=== PATIENT | female | born 1945 | race Caucasian/White ===

== ENCOUNTER 2019-09-05 14:24 | Outpatient (CLI) | payer MEDICARE, SELFPAY ==
[2019-09-05 14:41] LABS: Blood Urea Nitrogen 25 mg/dL (8-26); Carbon Dioxide 30 mmol/L (22-30); Chloride 100 mmol/L (98-109); Estimated Glomerular Filt Rate 55; Glucose 128 mg/dL (70-105); Potassium 3.8 mmol/L (3.5-4.9); Sodium 137 mmol/L (138-146)
[2019-09-05 16:58] LABS: Immunoglobulin A 62 mg/dL (70-400); Immunoglobulin G 816 mg/dL (700-1600); Immunoglobulin M 80 mg/dL (40-230)
== END 2019-09-05 14:25 | disposition home or self-care (01) ==
PROVIDERS: Visit Provider Internal Medicine Hematology & Oncology
DX: D80.1 Nonfamilial hypogammaglobulinemia (principal)
CPT/HCPCS: 36415; 80048; 82784

== ENCOUNTER 2019-09-24 11:37 | Emergency (ER) | payer MEDICARE, SELFPAY ==
[2019-09-24] VITALS (22 sets, daily range): BP systolic 124–152; BP diastolic 52–63; PULSE 76–96; RESP 11–28; TEMP 36.9; O2SAT 90–97
--- NOTE | ~2019-09-24 | CT_ITS ---
EXAMINATION: CT brain wo con DATE: 09/24/2019 12:48 INDICATION: Dizziness. TECHNIQUE: Computed tomography (CT) of the head was performed without intravenous contrast. The mA wa s adjusted according to patient size. Iterative reconstruction technique was employed. The dose-lengt h product was 529.67 mGy-cm. COMPARISON: None FINDINGS: There is no intracranial hemorrhage, acute infarction, or abnormal intracranial mass lesion . The ventricles are normal in size. The paranasal sinuses are clear. The mastoid air cells are rich l. IMPRESSION: 1. Normal brain. Reviewed, dictated and finalized at location A. EL REGISTERED NURSE NICU IMPRESSION: 1. Normal brain.
--- NOTE | ~2019-09-24 | XR_ITS ---
EXAMINATION: XR chest 2V EXAM DATE: 09/24/2019 14:00 INDICATION: Shortness of air, cough. Sore throat. TECHNIQUE: Frontal and lateral projections of the chest obtained and reviewed. Comparison is made to prior examination from 02/06/2018. FINDINGS: The lungs are clear. There are no pleural effusions. The cardiomediastinal silhouette is within normal limits. There is no pneumothorax suspected. The bones and soft tissues are unremarkab le. There is moderate sliding gastroesophageal hiatal hernia. IMPRESSION: No acute cardiopulmonary findings. Moderate-sized gastroesophageal hiatal hernia. Reviewed, dictated and finalized at location B. CART ASSEMBLER
--- NOTE | 2019-09-24 11:46 | ECG_ITS ---
Measurements Intervals [place] Rate: 93 P: 31 NE: 154 QRS: 5 QRSD: 91 T: 67 QT: 377 QTc: 471 Interpretive Statements SINUS RHYTHM BASELINE ARTIFACT- I, II, V2 NORMAL ECG Electronically Signed On 09-24-2019 12:07:45 [place] by Cristian Ayala D.O.
[2019-09-24 11:55] LABS: Basophils Percent Auto 0.3 % (0.2-1.2); Hematocrit 38.1 % (37.0-47.0); Hemoglobin 12.4 g/dL (12.0-15.0); Immature Granulocyte Absolute 0.17 K/mm3 (0.00-0.031); Immature Granulocyte Percent A 1.7 % (0-0.5); Lymphocytes Absolute Auto 0.88 K/mm3 (0.9-3.2); Lymphocytes Percent Auto 8.6 % (18.3-44.2); Mean Corpuscular HGB Conc 32.5 g/dl (32-36); Mean Corpuscular Hemoglobin 32.4 pg (26-34); Mean Corpuscular Volume 99.5 fl (80-100); Mean Platelet Volume 9.3 fl (7.4-10.4); Monocytes Absolute Auto 0.1 K/mm3 (0.1-0.6); Monocytes Percent Auto 1.2 % (2.6-8.5); Neutrophils Absolute Auto 9.1 K/mm3 (1.3-6.7); Neutrophils Percent Auto 88.2 % (45.5-73.1); Platelet Count Result 365 k/mm3 (150-375); Red Blood Count 3.83 M/mm3 (4.2-5.4); Red Cell Distribution Width 14.2 % (11.5-14.5); White Blood Count 10.3 K/mm3 (4.5-10.0)
[2019-09-24 12:06] LABS: Blood Urea Nitrogen 23 mg/dL (7-17); Calcium 9.6 mg/dL (8.4-10.2); Carbon Dioxide 23 mmol/L (22-30); Chloride 97 mmol/L (98-107); Estimated Glomerular Filt Rate 55; Glucose 181 mg/dL (65-105); Potassium 5.3 mmol/L (3.4-5.0); Sodium 136 mmol/L (137-145)
--- NOTE | 2019-09-24 12:25 | ED.DIZZY ---
HPI - Dizziness General Chief Complaint: Dizziness Stated Complaint: dizziness at the infusion center Time Seen by Provider: 09/24/19 11:46 Source: patient, family and RN notes reviewed Mode of arrival: ambulatory Limitations: no limitations History of Present Illness HPI Narrative: A 73 y/o female presents to the ED with dizziness beginning this morning after she woke up. She states that she feels like she is off balance and floating . She reports increased lethargy. She denies head movement or anything else aggravating her dizziness. She also denies any numbness, tinging, fevers, sweats, dysuria, urinary frequency, hematuria, CP, SOB, rhinorrhea, sore throat, or cough. MD elicited complaint: dizziness Pertinent past history: anemia Onset (ago): hour(s) (this morning when she woke up) Timing: awoke with symptoms Description: off-balance and other ( floating ) Exacerbating factors: nothing Associated symptoms: other (lethargy) Related Data Allergies Allergy/AdvReac Type Severity Reaction Status Date / Time hydromorphone Allergy Intermediate UNKNOWN Verified 09/26/18 12:59 fentanyl Allergy Mild ITCHING Verified 09/26/18 12:59 morphine Allergy Unknown Verified 05/26/15 16:55 MORPHINE SULFATE Allergy Intermediate ITCHING Uncoded 09/26/18 12:59 RASH Review of Systems Review of Systems: All systems reviewed & are unremarkable except as noted in HPI and below Constitutional: Constitutional: Denies fever(s) and Reports other (lethargy. Denies: sweats.) ENT: Denies nasal discharge and Denies sore throat Cardiovascular: Cardiovascular: Denies chest pain Respiratory: Respiratory: Denies cough and Denies dyspnea Genitourinary: Genitourinary: Denies hematuria, Denies nocturia and Denies dysuria Neurologic: Reports dizziness, Denies numbness and Denies tingling PMFSH Past Medical History Medical History Anemia Back pain with history of spinal surgery Cataracts, bilateral Depression GERD (gastroesophageal reflux disease) History of GI bleed History of rectal polyps History of revision 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teral knee replacement History of bladder surgery History of hysterectomy History of mastectomy History of tonsillectomy History of total hip replacement JOSÉ MIGUEL. Hx of bilateral cataract extraction Hx of cardiac cath Hx of tubal ligation Family History Family History Father Patient's father is Family history of thyroid disease Family history of cataracts Family history of heart disease in male family member before age 55 Family history of hearing loss Sibling Family history of thyroid disease Family history of obesity Family history of mental disorder Depression Family history of arthritis Family history of diabetes mellitus in first degree relative Family history of atrial fibrillation Mother Family history of cataracts Family history of anemia Cerebrovascular accident Family history of hearing loss Other Family history of malignant neoplasm Social History Social History Smoking status: Former smoker Second hand tobacco smoke exposure: Yes Smoking end date: 07/31/88 Alcohol intake: current Gender identity (if verbalized by the patient): Female Exam Narrative: Exam Narrative: GENERAL: Well-appearing, well-nourished, and in no acute distress. HEAD: Normocephalic, atraumatic. ENT: Mucous membranes moist. TMs normal bilaterally. CHEST: Clear to auscultation. No respiratory distress. HEART: Regular rate and rhythm. No
--- NOTE | 2019-09-24 12:50 | PC.NURSE ---
Pt has orthostatic dizziness this morning on awakening along with lethargy. Pt is A&Ox4. Pt denies SOB, blood in the stool or pain. Pt appears in NAD. Pt has call light in reach and family at bedside.
[2019-09-24] MEDS: SODIUM CHLORIDE 0.9% IV 1,000 ML 999 ML IV CONT (13:04)
[2019-09-24 13:14] LABS: Add Urine Microscopic? YES; Appearance Urine Clear (Clear); Bacteria Urine Trace /hpf; Bilirubin Urine Negative (Negative); Blood Urine Negative (Negative); Color Urine Yellow (Yellow); Glucose Urine UA Negative (Negative); Ketones Urine Negative (Negative); Leukocyte Esterase Ur Negative LEU/UL (Negative); Mucus Urine Rare /lpf; Nitrate Urine Negative (Negative); Protein Urine Negative (Negative); RBC Urine 0-2 /hpf (0-2); Specific Grav Ur 1.012 (1.001-1.035); Squamous Epithelial Cell Urine Few /hpf (Few); Urobilinogen Urine Negative mg/dL (<2.0); WBC Urine 0-3 /hpf
--- NOTE | 2019-09-24 14:45 | PC.NURSE ---
Pt walked without difficulty. Pt states she feels better after fluids
== END 2019-09-24 17:01 | disposition home or self-care (01) ==
PROVIDERS: Emergency Provider Emergency Medicine; PCP Internal Medicine
DX: E86.0 Dehydration (principal); Z87.891 Personal history of nicotine dependence
CPT/HCPCS: 36415; 70450; 71046; 80048; 81001; 85025; 93005; 96360; 96361; 99212; 99284; G0463; J7030

== ENCOUNTER 2019-10-07 12:40 | Outpatient (CLI) | payer MEDICARE, SELFPAY ==
--- NOTE | ~2019-10-07 | XR_ITS ---
XR chest 2V 10/07/2019 13:04 Indication: Cough Procedure: 2 view chest Comparison: Comparison to multiple prior studies sequentially, with oldest reviewed study dated 10/26. Findings: Heart size normal. Moderate size hiatal hernia. No focal air space disease, pulmonary edema , pleural effusion or suspected pneumothorax. There is levoscoliosis. No acute osseous abnormality. Impression: 1: No acute cardiopulmonary disease. 2: Moderate size hiatal hernia. Reviewed, dictated and finalized at location A. Impression: 1: No acute cardiopulmonary disease. 2: Moderate size hiatal hernia.
== END 2019-10-07 12:41 | disposition home or self-care (01) ==
LOC: ANHIMG 12:47
PROVIDERS: PCP Internal Medicine; Visit Provider Physician Assistant
DX: R05 Cough (principal); K44.9 Diaphragmatic hernia without obstruction or gangrene
CPT/HCPCS: 71046

== ENCOUNTER → 2019-11-01 15:32 | Outpatient (CLI) | payer MEDICARE, OTHER, SELFPAY ==
--- NOTE | ~2019-11-01 | MM_ITS ---
EXAMINATION: MM screening yordan BI w jason HISTORY: Screening mammogram TECHNIQUE: Craniocaudal and mediolateral oblique 3-D tomosynthesis images were obtained and synthetic 2-D images were generated. CAD analysis was submitted and interpreted. COMPARISON: 07/17/2018 bilateral digital screening mammogram 2. bilateral diagnostic digital mammogram and bilateral Limited breast ultrasound 05/03/2017, 04/15/2016 bilateral digital screening mammogram examinations BREAST PARENCHYMAL COMPOSITION: There are scattered areas of fibroglandular density. FINDINGS: Stable mild fibroglandular asymmetry. Scattered benign calcifications. A biopsy marker is n oted on the left; history of prior benign left breast biopsy. There is no evidence of suspicious mass , calcification, or architectural distortion to suggest malignancy in either breast. There has been n o suspicious interval change. IMPRESSION: 1. No mammographic evidence of malignancy. 2. Recommend routine screening mammography in one year. BI-RADS Category 2: Benign finding(s). Reviewed, dictated and finalized at location A.
== END ==
PROVIDERS: PCP Internal Medicine; Visit Provider Obstetrics & Gynecology
DX: Z12.31 Encounter for screening mammogram for malignant neoplasm of breast (principal)
CPT/HCPCS: 77063; 77067

== ENCOUNTER → 2019-11-05 13:46 | Outpatient (CLI) | payer MEDICARE, OTHER, SELFPAY ==
--- NOTE | ~2019-11-05 | MR_ITS ---
EXAMINATION: MR lumbar spine wo con EXAM DATE: 11/05/2019 14:27 INDICATION: Low back pain, right hip pain, spasms. TECHNIQUE: Multi-sequential, multiplanar MR images of the lumbar spine were obtained without contrast . Sagittal T1, T2, T2 fat saturation images. Axial T2 weighted images. Comparison is made to prior examination from 08/08/2016. FINDINGS: L5 is a transitional segment which is partially fused to the S1 segment. There is mild bone marrow edema within the central aspects of the T12 and L1 vertebral bodies, mild diffuse loss of the se vertebral body heights which is new compared to prior exam, could be subacute mild compression fra ctures. There is 3 mm retrolisthesis T12 on L1 and L2 on L3, 6 mm is anterolisthesis L4 on L5. The co nus medullaris terminates at the L1-2 level and has normal signal intensity and morphology. Paraspin al soft tissue is unremarkable. Level by level evaluation: T12-L1: There is a moderate diffuse disc bulge. Facet arthropathy: Mild to moderate. Neural foraminal stenosis: Moderate right. Central canal stenosis: Mild to moderate. L1-L2: There is a mild diffuse disc bulge. Facet arthropathy: Mild. Neural foraminal stenosis: No stenosis. Central canal stenosis: No stenosis. L2-L3: There is a mild to moderate diffuse disc bulge. Facet arthropathy: Mild to moderate . Ligamentum flavum enlargement. Neural foraminal stenosis: Mild to moderate bilateral. Central canal stenosis: Mild to moderate, left lateral recess narrowing. L3-L4: There is a mild to moderate diffuse disc bulge. Facet arthropathy: Moderate . Ligamentum flavum enlargement. Neural foraminal stenosis: Moderate bilateral. Central canal stenosis: Moderate. L4-L5: There is a moderate diffuse disc bulge. Facet arthropathy: Severe . Ligamentum flavum enlargement. Neural foraminal stenosis: Moderate bilateral. Central canal stenosis: Moderate to severe. L5-S1: There is a congenitally an partially fused narrowed disc space. Facet arthropathy: Mild. Neural foraminal stenosis: Mild bilateral. Central canal stenosis: No stenosis. There has been noticeable interval progression in spondylosis compared to previous examination. IMPRESSION: 1. Probable subacute mild compression fractures T12 and L1. 2. Interval progression in lumbar spondylosis with L4-5 grade 1 anterolisthesis, moderate to severe central canal stenosis. 3. Lesser spondylosis at other levels. Reviewed, dictated and finalized at location B. IMPRESSION: 1. Probable subacute mild compression fractures T12 and L1. 2. Interval progression in lumbar spondylosis with L4-5 grade 1 anterolisthesi s, moderate to severe central canal stenosis. 3. Lesser spondylosis at other levels.
== END ==
PROVIDERS: PCP Internal Medicine; Visit Provider Nurse Practitioner Family
DX: M54.16 Radiculopathy, lumbar region (principal)
CPT/HCPCS: 72148

== ENCOUNTER → 2019-11-08 14:27 | Outpatient (CLI) | payer MEDICARE, OTHER, SELFPAY ==
--- NOTE | ~2019-11-08 | DEXA_ITS ---
Bone Density Report Name: Marce Tidwell Age: 74 Sex: Female Ethnicity: White Date of : 1945 Indication: monitoring treatment; height loss; prior fracture; hysterectomy; rheumatoid arthritis; postmenopausal Referring Provider: Henrry, Carol Study: Bone densitometry was performed. Exam Date: November 08, 2019 Accession number: [id number] Bone Density: Region BMD T-score Z-score Classification AP Spine (L2, L3) 1.286 2.1 4.4 Normal World Health Organization criteria for BMD impression classify patients as: Normal (T-score at or above -1.0), Osteopenia (T-score between -1.0 and -2.5), or Osteoporosis (T-score at or below -2.5). Previous Exams: Region Exam Age BMD T-score BMD Change BMD Change Date g/cm2 vs Baseline vs Previous AP Spine(L2, L3) 11/08/2019 74 1.286 2.1 0.319* 0.159* 04/07/2017 71 1.127 0.6 0.160* 0.033* 05/14/2014 68 1.094 0.3 0.128* 0.065* 12/28/2011 66 1.029 -0.3 0.063* -0.049* 07/27/2009 63 1.078 0.2 0.112* 0.093* 04/18/2008 62 0.985 -0.7 0.019 0.019 07/07/2005 59 0.966 -0.8 *Denotes significance at 95% confidence level, LSC for AP Spine = 0.022 g/cm2 Clinical Information Provided by Patient: Have had a previous hip or vertebral fracture Has had a low trauma fracture Has rheumatoid arthritis Is being treated for osteoporosis Has used the following medications: HRT (i.e. estrogen/hormone therapy), Vitamin D, Calcium Has the following medical conditions: Hysterectomy Patient maximum height was 62 Menopause Age: 29 No regular weight bearing exercise Does not regularly consume dairy products Drinks caffeinated beverages Onset of menses at age 11 Number of children 2 Impression: The patient has normal bone mass. The patient has risk factors, including: previous fracture. No significant bone loss was observed. Discussion: PATIENT UNDER TREATMENT WITH NO SIGNIFICANT BMD LOSS SINCE LAST EXAM. In an untreated patient, BMD typically declines with age. A lack of decline or gain is usually a sign that treatment is efficacious and fracture risk is reduced. It is important to ask patients whether they are taking their medications and to encourage continued and appropriate compliance with their osteoporosis therapies to reduce fracture risk. It is also important to review their risk factors and encourage appropriate calcium and vitamin D intakes, exercise, fall prevention and other lifestyle measures. Follow-Up: Consider a repeat BMD and Vertebral Fracture Assessment (VFA) exam in 2 years or sooner if medically necessary, to reassess this patient's status. Reported by: MAYTE on
== END ==
PROVIDERS: PCP Internal Medicine; Visit Provider Nurse Practitioner Family
DX: M80.08XA Age-related osteoporosis with current pathological fracture, vertebra(e), initial encounter for fracture (principal)
CPT/HCPCS: 77080

== ENCOUNTER 2019-12-06 17:23 | Outpatient (CLI) | payer MEDICARE, SELFPAY ==
--- NOTE | ~2019-12-06 | XR_ITS ---
XR lumbar spine min 4V 12/06/2019 17:59 Indication: Back pain. Recent fall. Procedure: 4 views of the lumbar spine Comparison: 08/07/2007 Findings: There are vertebroplasty changes at T12 and L1. There is severe multilevel facet hypertroph y with degenerative anterolisthesis at L4-5. No acute fracture or traumatic malalignment. Mild levosc oliosis centered at the thoracolumbar spine. There are bilateral hip arthroplasties. Impression: 1: Severe lumbar spondylosis. 2: Mild loss of vertebral body height at T12 with vertebroplasty changes at T12 and L1. Reviewed, dictated and finalized at location A. Impression: 1: Severe lumbar spondylosis. 2: Mild loss of vertebral body height at T12 with vertebroplasty changes at T12 and L1.
== END 2019-12-06 17:24 | disposition home or self-care (01) ==
LOC: ANHIMG 17:36
PROVIDERS: PCP Internal Medicine; Visit Provider Nurse Practitioner Family
DX: M47.26 Other spondylosis with radiculopathy, lumbar region (principal); R29.890 Loss of height
CPT/HCPCS: 72110

== ENCOUNTER 2020-09-30 13:48 | Outpatient (CLI) | payer MEDICARE, SELFPAY | END 2020-09-30 13:49 | disposition home or self-care (01) | LOC: ANHCOVIDVC 13:48 | PROVIDERS: PCP Internal Medicine | DX: Z23 Encounter for immunization (principal) | CPT/HCPCS: 0001A; 91300 ==

== ENCOUNTER → 2020-10-15 18:56 | Outpatient (CLI) | payer MEDICARE, OTHER, SELFPAY ==
--- NOTE | ~2020-10-15 | XR_ITS ---
XR hand RT min 3V DATE: 10/15/2020 19:11 INDICATION: Right hand pain TECHNIQUE: 3 views COMPARISON: None FINDINGS: There is severe osteoarthritis at the triscaphe and particularly first carpometacarpal join ts. There is osteoarthritis at the first and second metacarpophalangeal joints and multiple interphalange al joints, particularly the interphalangeal joint of the first digit and distal interphalangeal joint s of the second and fifth digits. There is chondrocalcinosis at the triangular cartilage and wrist joint. No erosive change is evident. No fracture, dislocation, periosteal reaction or bone destruction is detected. 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
== END ==
PROVIDERS: Visit Provider Internal Medicine
DX: M19.041 Primary osteoarthritis, right hand (principal); M11.241 Other chondrocalcinosis, right hand
CPT/HCPCS: 73130

== ENCOUNTER 2020-10-21 13:40 | Outpatient (CLI) | payer MEDICARE, SELFPAY | END 2020-10-21 13:41 | disposition home or self-care (01) | LOC: ANHCOVIDVC 13:40 | DX: Z23 Encounter for immunization (principal) | CPT/HCPCS: 0002A; 91300 ==

== ENCOUNTER 2020-12-09 13:59 | Emergency (ER) | payer MEDICARE, SELFPAY ==
[2020-12-09 14:11] VITALS: BP 127/43; PULSE 98; RESP 12; TEMP 37.3; O2SAT 99
--- NOTE | 2020-12-09 14:20 | ED.GENADULT ---
HPI - General Adult General Chief complaint: Upper Respiratory Infection Stated complaint: sore throat Time Seen by Provider: 12/09/20 14:20 Source: patient and RN notes reviewed Mode of arrival: ambulatory Limitations: no limitations History of Present Illness HPI narrative: 75-year-old female presents with complaints of sore throat, upper respiratory infection, facial congestion, facial pressure, tongue soreness and irritation for the past 3 weeks. Marce reports increase congestion and pressure for the past 7 days. Gargle with salt water and Aspirin with little relief. No high fevers, drooling, neck or throat swelling. Pain is bilateral. Hurts to swallow. Exacerbation factors consist of eating and drinking. No rhinorrhea. Nasal congestion. No voice change. No nausea, vomiting, or abdominal pain. Tolerating liquids well. Denies dyspnea, difficulty swallowing, jaw pain, dental pain, facial pain, foreign body sensation, and rash. Remains active. The patient reports she have not been diagnosed with COVID-19. The patient reports she received 2 Pfizer COVID-19 vaccines. The patient reports she is not waiting for the results of a COVID-19 lab test. The patient reports she do not have chills, weakness, or fatigue. The patient reports she do not have a new or worsening cough. Denies chest pain. The patient reports she do not have any loss of taste or smell or diarrhea. Denies recent traveling. Denies concerns for COVID-19 or exposures been home with limited outdoor exposure except for essential household needs and return home. At this time, patient is not suspected of having COVID-19. Some parts of this dictation were generated by voice recognition software and may contain typographical and/or grammatical inaccuracies. Related Data Home Medications Medication Instructions Recorded Confirmed antiarthritic combination no.2 900 900 mg PO BID 10/07/19 11/03/20 mg tablet biotin 1 mg capsule 1 mg PO DAILY 10/07/19 07/28/20 calcium carbonate 600 mg calcium 600 mg PO DAILY 10/07/19 11/03/20 (1,500 mg) tablet clonazepam 1 mg tablet 1 mg PO .hs tablet 10/07/19 11/03/20 cyanocobalamin (vitamin B-12) 1,000 mcg IM WEEKLY 10/07/19 11/03/20 1,000 mcg/mL injection kit cyclobenzaprine 10 mg tablet 10 mg PO TID tablet 10/07/19 11/03/20 cyclosporine 0.05 % eye drops in a 1 drop EACH EYE Q12H 10/07/19 11/03/20 dropperette estradiol cypionate 5 mg/mL 2.5 mg IM [id number] ml 10/07/19 11/03/20 intramuscular oil finasteride 5 mg tablet 5 mg PO DAILY 10/07/19 11/03/20 gabapentin 600 mg tablet 600 mg PO BID 10/07/19 11/03/20 hydrocodone 5 mg-acetaminophen 325 1 tablet PO Q8H PRN 10/07/19 11/03/20 mg tablet hydroxyzine HCl 25 mg tablet 25 mg PO BID PRN 10/07/19 11/03/20 lactobacillus combination no.8 3 3,000 mmu cells PO DAILY 10/07/19 11/03/20 billion cell capsule levothyroxine 175 mcg tablet 175 mcg PO DAILY 10/07/19 11/03/20 liothyronine 5 mcg tablet 5 mcg PO DAILY 10/07/19 11/03/20 magnesium 30 mg tablet 30 mg PO DAILY 10/07/19 11/03/20 multivitamin 1 tablet PO DAILY 10/07/19 11/03/20 nabumetone 750 mg tablet 750 mg PO BID 10/07/19 11/03/20 sertraline 50 mg tablet 50 mg PO DAILY 10/07/19 11/03/20 spironolactone 100 mg tablet 200 mg PO DAILY tablet 10/07/19 11/03/20 temazepam 30 mg capsule 30 mg PO ONCE 10/07/19 11/03/20 testosterone cypionate 200 mg/mL 50 mg IM .q2w each 10/07/19 11/03/20 intramuscular kit tofacitinib 11 mg tablet,extended 11 mg PO DAILY 10/07/19 11/03/20 release 24 hr amitriptyline 25 mg tablet 25 mg PO ONCE 03/03/20 11/03/20 folic acid 1 mg tablet 2 mg PO DAILY tablet 03/03/20 11/03/20 loteprednol etabonate [Lotemax SM] 1 drp OPHTHALMIC (EYE) HS 07/28/20 11/03/20 Allergies Allergy/AdvReac Type Severity Reaction Status Date / Time fentanyl AdvReac Unknown ITCHING Verified 11/03/20 14:24 hydromorphone AdvReac Unknown Itching Verified 11/03/20 14:24 morphine AdvReac Unknown Itching Verified
== END 2020-12-09 14:42 | disposition home or self-care (01) ==
PROVIDERS: Emergency Provider Nurse Practitioner Family; PCP Internal Medicine
DX: J01.10 Acute frontal sinusitis, unspecified (principal); Z87.891 Personal history of nicotine dependence; F32.9 Major depressive disorder, single episode, unspecified; K21.9 Gastro-esophageal reflux disease without esophagitis; E78.00 Pure hypercholesterolemia, unspecified; E03.9 Hypothyroidism, unspecified; M19.90 Unspecified osteoarthritis, unspecified site; M06.9 Rheumatoid arthritis, unspecified; Z96.653 Presence of artificial knee joint, bilateral; Z96.643 Presence of artificial hip joint, bilateral; Z98.42 Cataract extraction status, left eye; Z98.41 Cataract extraction status, right eye; Z90.10 Acquired absence of unspecified breast and nipple
CPT/HCPCS: 99213; G0463

== ENCOUNTER → 2021-03-19 13:56 | Outpatient (CLI) | payer MEDICARE, OTHER, SELFPAY ==
--- NOTE | ~2021-03-19 | MM_ITS ---
EXAMINATION: MM screening yordan BI w jason HISTORY: Screening mammogram TECHNIQUE: Craniocaudal and mediolateral oblique 3-D tomosynthesis images were obtained and synthetic 2-D images were generated. CAD analysis was submitted and interpreted. COMPARISON: 11/01/2019, 07/17/2018 bilateral digital screening mammogram examinations BREAST PARENCHYMAL COMPOSITION: There are scattered areas of fibroglandular density. FINDINGS: There is a biopsy marker in the left breast; history of prior benign left breast biopsy in 2012. Occasional bilateral benign calcifications. There is no evidence of suspicious mass, calcification, o r architectural distortion to suggest malignancy in either breast. There has been no suspicious inter sun change. IMPRESSION: 1. No mammographic evidence of malignancy. 2. Recommend routine screening mammography in one year. BI-RADS Category 2: Benign finding(s). Reviewed, dictated and finalized at location A.
== END ==
PROVIDERS: PCP Internal Medicine; Visit Provider Obstetrics & Gynecology
DX: Z12.31 Encounter for screening mammogram for malignant neoplasm of breast (principal)
CPT/HCPCS: 77063; 77067

== ENCOUNTER 2021-09-23 15:12 | Emergency (ER) | payer OTHER, MEDICARE, SELFPAY ==
[2021-09-23] VITALS (31 sets, daily range): BP systolic 87–131; BP diastolic 42–106; PULSE 65–87; RESP 11–23; TEMP 36.6; O2SAT 85–100
--- NOTE | ~2021-09-23 | XR_ITS ---
EXAMINATION: XR hip RT 1V INDICATION: Post reduction TECHNIQUE: AP view of the right hip is obtained. COMPARISON: 1527 hours FINDINGS: There has been interval reduction of the previously described right hip arthroplasty disloc ation. Alignment appears normal. No fracture is identified. IMPRESSION: 1. Reduced hip arthroplasty dislocation. Reviewed, dictated and finalized at location F. THERAPIST
--- NOTE | ~2021-09-23 | XR_ITS ---
EXAMINATION: XR hip RT 2V w AP pelvis DATE: 09/23/2021 15:42 INDICATION: Right hip dislocation post fall TECHNIQUE: Anteroposterior view of the pelvis and anteroposterior and cross-table lateral views of th e right hip were obtained. COMPARISON: CT dated 07/17/2018 FINDINGS: Bilateral noncemented total hip arthroplasties. Posterior superior dislocation of the right total hip arthroplasty. There is osteolysis surrounding the proximal aspect of the femoral component of the ri ght hip arthroplasty. No lucency surrounding the bilateral acetabular components or the left femoral component. No fracture. Severe lower lumbar facet osteoarthritis. IMPRESSION: 1. Posterosuperior dislocation of a right total hip arthroplasty. Reviewed, dictated and finalized at location A. [employer]
--- NOTE | 2021-09-23 15:34 | ED.GENADULT ---
HPI - General Adult General Chief complaint: Unspecified <Guy Chavarria APRN - Last Filed: 09/23/21 17:23> Stated complaint: R hip dislocation <Guy Chavarria APRN - Last Filed: 09/23/21 17:23> Time Seen by Provider: 09/23/21 15:20 <Guy Chavarria APRN - Last Filed: 09/23/21 17:23> History of Present Illness HPI narrative: 75-year-old female presents the emergency room status post right hip pain. Patient states that she was using the restroom when she lifted her hip up off the toilet and noticed significant pain in her posterior side of her right hip. Patient was unable to ambulate following the event. Patient has a history of right hip repair, and a right hip revision. Right hip was initially repaired at [facility], right hip revision was performed to the hospital in the [facility]. Patient has a recent history of right hip dislocation, which was reduced at [facility] facility and stabilized. <Guy Chavarria APRN - Last Filed: 09/23/21 17:23> Related Data Home medications: Home Medications Medication Instructions Recorded Confirmed antiarthritic combination no.2 900 900 mg PO BID 10/07/19 11/03/20 mg tablet biotin 1 mg capsule 1 mg PO DAILY 10/07/19 07/28/20 calcium carbonate 600 mg calcium 600 mg PO DAILY 10/07/19 11/03/20 (1,500 mg) tablet clonazepam 1 mg tablet 1 mg PO .hs tablet 10/07/19 11/03/20 cyanocobalamin (vitamin B-12) 1,000 mcg IM WEEKLY 10/07/19 11/03/20 1,000 mcg/mL injection kit cyclobenzaprine 10 mg tablet 10 mg PO TID tablet 10/07/19 11/03/20 cyclosporine 0.05 % eye drops in a 1 drop EACH EYE Q12H 10/07/19 11/03/20 dropperette estradiol cypionate 5 mg/mL 2.5 mg IM [id number] ml 10/07/19 11/03/20 intramuscular oil finasteride 5 mg tablet 5 mg PO DAILY 10/07/19 11/03/20 gabapentin 600 mg tablet 600 mg PO BID 10/07/19 11/03/20 hydrocodone 5 mg-acetaminophen 325 1 tablet PO Q8H PRN 10/07/19 11/03/20 mg tablet hydroxyzine HCl 25 mg tablet 25 mg PO BID PRN 10/07/19 11/03/20 lactobacillus combination no.8 3 3,000 mmu cells PO DAILY 10/07/19 11/03/20 billion cell capsule levothyroxine 175 mcg tablet 175 mcg PO DAILY 10/07/19 11/03/20 liothyronine 5 mcg tablet 5 mcg PO DAILY 10/07/19 11/03/20 magnesium 30 mg tablet 30 mg PO DAILY 10/07/19 11/03/20 multivitamin 1 tablet PO DAILY 10/07/19 11/03/20 nabumetone 750 mg tablet 750 mg PO BID 10/07/19 11/03/20 sertraline 50 mg tablet 50 mg PO DAILY 10/07/19 11/03/20 spironolactone 100 mg tablet 200 mg PO DAILY tablet 10/07/19 11/03/20 temazepam 30 mg capsule 30 mg PO ONCE 10/07/19 11/03/20 testosterone cypionate 200 mg/mL 50 mg IM .q2w each 10/07/19 11/03/20 intramuscular kit tofacitinib 11 mg tablet,extended 11 mg PO DAILY 10/07/19 11/03/20 release 24 hr amitriptyline 25 mg tablet 25 mg PO ONCE 03/03/20 11/03/20 folic acid 1 mg tablet 2 mg PO DAILY tablet 03/03/20 11/03/20 loteprednol etabonate [Lotemax SM] 1 drp OPHTHALMIC (EYE) HS 07/28/20 11/03/20 <Guy Chavarria, CLINICAL NURSE EDUCATOR - Last Filed: 09/23/21 17:23> Allergies/adverse reactions: Allergies Allergy/AdvReac Type Severity Reaction Status Date / Time fentanyl AdvReac Unknown ITCHING Verified 11/03/20 14:24 hydromorphone AdvReac Unknown Itching Verified 11/03/20 14:24 morphine AdvReac Unknown Itching Verified 11/03/20 14:24 <Guy Chavarria, CLINICAL NURSE EDUCATOR - Last Filed: 09/23/21 17:23> Review of Systems Review of Systems: CONSTITUTIONAL: Denies fever, chills, or sweats. EYES: Denies visual changes, redness, or discharge. ENT: Denies rhinorrhea, congestion, sore throat, or otalgia. CARDIOVASCULAR: Denies chest pain, palpitations, or edema. RESPIRATORY: Denies cough or dyspnea. GASTROINTESTINAL: Denies abdominal pain, nausea, vomiting, or diarrhea. GENITOURINARY: Denies dysuria or hematuria. SKIN: Denies rash or itching. MUSCULOSKELETAL: Denies back pain, joint pain, or myalgia. Right hip pain NEUROLOGIC: Denies headache, numbness, dizziness, or weakness. PSYCHIA
--- NOTE | 2021-09-23 16:52 | PC.NURSE ---
1635. pt. alert and oriented x4 1 L NS hung to gravity. vorb 1640 30 mg propofol administered IVP by JOAN Barrientos
== END 2021-09-23 18:26 | disposition home or self-care (01) ==
PROVIDERS: Emergency Provider Nurse Practitioner Family; PCP Internal Medicine
DX: T84.020A Dislocation of internal right hip prosthesis, initial encounter (principal); K21.9 Gastro-esophageal reflux disease without esophagitis; E78.00 Pure hypercholesterolemia, unspecified; E03.9 Hypothyroidism, unspecified; K58.9 Irritable bowel syndrome, unspecified; M06.9 Rheumatoid arthritis, unspecified; M19.90 Unspecified osteoarthritis, unspecified site; Z87.440 Personal history of urinary (tract) infections; Z87.19 Personal history of other diseases of the digestive system; Z98.42 Cataract extraction status, left eye; Z98.41 Cataract extraction status, right eye; Z96.653 Presence of artificial knee joint, bilateral; Z96.643 Presence of artificial hip joint, bilateral; Z87.891 Personal history of nicotine dependence
CPT/HCPCS: 27265; 73501; 73502; 99285; J2704; J7030

== ENCOUNTER 2021-11-01 14:48 | Emergency (ER) | payer OTHER, SELFPAY ==
[2021-11-01] VITALS (51 sets, daily range): BP systolic 52–137; BP diastolic 16–80; PULSE 66–96; RESP 10–22; TEMP 36.1–37.2; O2SAT 90–100
--- NOTE | ~2021-11-01 | XR_ITS ---
EXAMINATION: XR hip RT min 2V EXAM DATE: 11/01/2021 16:41 INDICATION: Postreduction. TECHNIQUE: Frontal and crosstable lateral projections right hip compared to prior study from earlier same date. FINDINGS: The right hip has been reduced. Osteolysis surrounding proximal aspect of right femoral st em described on prior studies. IMPRESSION: Status post right hip reduction. Reviewed, dictated and finalized at location A.
--- NOTE | ~2021-11-01 | XR_ITS ---
EXAMINATION: XR hip RT 2V w AP pelvis EXAM DATE: 11/01/2021 15:16 INDICATION: Fall, right hip pain. TECHNIQUE: Right hip frontal, crosstable lateral projections for interpretation. Frontal projection p tony. Comparison is made to prior examination from 09/23/2021. FINDINGS: There are total bilateral hip arthroplasties again noted. There is recurrent complete super ior displacement of the right femoral component with respect to the acetabulum. There is lucency surrounding the proximal aspect of the right femoral component intertrochanteric reg ion, without any lucency surrounding the mid and distal aspect of the stem. Could be chronic small pa rticle disease, similar appearance on prior study. No lucency surrounding the acetabular component. IMPRESSION: 1. Recurrent right hip superior dislocation. 2. 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 Reviewed, dictated and finalized at location A. IMPRESSION: 1. Recurrent right hip superior dislocation. 2. Osteolysis proximal aspect right femoral stem, most likely small particle d isease.
--- NOTE | 2021-11-01 15:03 | ED.FALL ---
HPI - Fall General Chief Complaint: Fall Stated Complaint: R hip dislocation? Time Seen by Provider: 11/01/21 14:54 Source: patient and EMS Mode of arrival: EMS Limitations: no limitations History of Present Illness HPI Narrative: This is a 76 year old female with history of Rheumatoid arthritis who presents for evaluation of right hip pain. PAtient states she was sitting in a chair after taking a shower. She reports the chair cushion slid out of chair and this caused her to fall out of chair. She is having right hip pain and she reports his a pop in her right hip. She has history of right hip replacement with a revision . She denies hitting her head or LOC. She denies neck pain, numbness or tingling. EMS gave patient morphine 2 mg IV in route. She states she has taken dilaudid without an allergic reaction in the past. Related Data Home Medications Medication Instructions Recorded Confirmed antiarthritic combination no.2 900 900 mg PO BID 10/07/19 11/03/20 mg tablet biotin 1 mg capsule 1 mg PO DAILY 10/07/19 07/28/20 calcium carbonate 600 mg calcium 600 mg PO DAILY 10/07/19 11/03/20 (1,500 mg) tablet clonazepam 1 mg tablet 1 mg PO .hs tablet 10/07/19 11/03/20 cyanocobalamin (vitamin B-12) 1,000 mcg IM WEEKLY 10/07/19 11/03/20 1,000 mcg/mL injection kit cyclobenzaprine 10 mg tablet 10 mg PO TID tablet 10/07/19 11/03/20 cyclosporine 0.05 % eye drops in a 1 drop EACH EYE Q12H 10/07/19 11/03/20 dropperette estradiol cypionate 5 mg/mL 2.5 mg IM [id number] ml 10/07/19 11/03/20 intramuscular oil finasteride 5 mg tablet 5 mg PO DAILY 10/07/19 11/03/20 gabapentin 600 mg tablet 600 mg PO BID 10/07/19 11/03/20 hydrocodone 5 mg-acetaminophen 325 1 tablet PO Q8H PRN 10/07/19 11/03/20 mg tablet hydroxyzine HCl 25 mg tablet 25 mg PO BID PRN 10/07/19 11/03/20 levothyroxine 175 mcg tablet 175 mcg PO DAILY 10/07/19 11/03/20 liothyronine 5 mcg tablet 5 mcg PO DAILY 10/07/19 11/03/20 magnesium 30 mg tablet 30 mg PO DAILY 10/07/19 11/03/20 multivitamin 1 tablet PO DAILY 10/07/19 11/03/20 nabumetone 750 mg tablet 750 mg PO BID 10/07/19 11/03/20 sertraline 50 mg tablet 50 mg PO DAILY 10/07/19 11/03/20 spironolactone 100 mg tablet 200 mg PO DAILY tablet 10/07/19 11/03/20 temazepam 30 mg capsule 30 mg PO ONCE 10/07/19 11/03/20 testosterone cypionate 200 mg/mL 50 mg IM .q2w each 10/07/19 11/03/20 intramuscular kit tofacitinib 11 mg tablet,extended 11 mg PO DAILY 10/07/19 11/03/20 release 24 hr amitriptyline 25 mg tablet 25 mg PO ONCE 03/03/20 11/03/20 folic acid 1 mg tablet 2 mg PO DAILY tablet 03/03/20 11/03/20 loteprednol etabonate [Lotemax SM] 1 drp OPHTHALMIC (EYE) HS 07/28/20 11/03/20 Allergies Allergy/AdvReac Type Severity Reaction Status Date / Time fentanyl AdvReac Unknown ITCHING Verified 11/01/21 15:04 hydromorphone AdvReac Unknown Itching Verified 11/01/21 15:04 morphine AdvReac Unknown Itching Verified 11/01/21 15:04 Review of Systems Review of Systems: All systems reviewed & are unremarkable except as noted in HPI and below PMFSH Past Medical History Medical History (Updated 11/01/21 @ 18:09 by Sury Nolen MD) Anemia Back pain with history of spinal surgery Cataracts, bilateral Depression GERD (gastroesophageal reflux disease) History of GI bleed History of rectal polyps History of revision 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teral knee replacement History of bladder surgery History of hysterectomy History of mastectomy History of tonsillectomy History of total hip replacement JOSÉ MIGUEL. Hx of bilateral cataract extraction Hx of cardiac cath Hx of tubal ligation F
--- NOTE | 2021-11-01 15:07 | PC.NURSE ---
pt off floor to xray
[2021-11-01] MEDS: SODIUM CHLORIDE 0.9% IV 1,000 ML 999 ML IV CONT (15:34)
[2021-11-01] MEDS: ONDANSETRON INJ 4 MG/2 ML VIAL IV PUSH (15:35)
[2021-11-01] MEDS: HYDROmorphone HCL INJ (*CRX) 1 MG/ML SYR 0.5 MG IV PUSH (15:40)
--- NOTE | 2021-11-01 15:45 | PC.NURSE ---
MD aware of BP, okay to continue with Dilaudid at this time
--- NOTE | 2021-11-01 17:22 | PC.NURSE ---
ketamine was used for sedation/reduction 30 mg doses x2 first dose 1615 second dose 1620 the rest was wasted per policy
== END 2021-11-01 18:58 | disposition home or self-care (01) ==
PROVIDERS: Emergency Provider General Practice; PCP Internal Medicine
DX: T84.020A Dislocation of internal right hip prosthesis, initial encounter (principal); F32.A Depression, unspecified; E78.00 Pure hypercholesterolemia, unspecified; E03.9 Hypothyroidism, unspecified; M06.9 Rheumatoid arthritis, unspecified; Z86.2 Personal history of diseases of the blood and blood-forming organs and certain disorders involving the immune mechanism; Z87.19 Personal history of other diseases of the digestive system; Z96.643 Presence of artificial hip joint, bilateral; Z79.899 Other long term (current) drug therapy; W07.XXXA Fall from chair, initial encounter; Z87.891 Personal history of nicotine dependence; Z96.653 Presence of artificial knee joint, bilateral
CPT/HCPCS: 27265; 73502; 96374; 96375; 99285; J1170; J2405; J7030

== ENCOUNTER 2022-01-23 15:47 | Emergency (ER) | payer OTHER, SELFPAY ==
[2022-01-23] VITALS (9 sets, daily range): BP systolic 97–174; BP diastolic 36–116; PULSE 62–84; RESP 11–18; TEMP 36.6–36.7; O2SAT 15–100
--- NOTE | ~2022-01-23 | XR_ITS ---
EXAM: XR hip RT min 2V DATE: 01/23/2022 17:16 HISTORY: Post Reduction . COMPARISON: Same date at 4:03 PM. FINDINGS: The femoral head component is now aligned with the acetabular cup. There is mild superior displacement of the femoral head within the cup as can be seen with polyethylene wear. No other signi ficant interval change. IMPRESSION: Successful right hip reduction. Reviewed, dictated and finalized at location K.
--- NOTE | ~2022-01-23 | XR_ITS ---
EXAM: XR hip RT min 2V DATE: 01/23/2022 16:13 HISTORY: possible dislocation, patient states this is the 4th time . COMPARISON: 11/01/2021. FINDINGS: Decreased mineralization. No osseous or hardware fracture. The femoral component is disloc ated superiorly from the acetabular cup. Unchanged perihilar hardware lucency at the proximal aspect of the femoral component. No lytic or blastic lesion. Likely right hip joint effusion. IMPRESSION: Superior dislocation of the femoral component from the acetabular cup in the right hip. N o osseous or hardware fracture. Reviewed, dictated and finalized at location K. IMPRESSION: Superior dislocation of the femoral component from the acetabular c up in the right hip. No osseous or hardware fracture.
--- NOTE | 2022-01-23 16:26 | ED.GENADULT ---
HPI - General Adult General Chief complaint: Extremity Injury, Lower <Ember Vasquez PA-C - Last Filed: 01/23/22 20:29> Stated complaint: right hip pain <Ember Vasquez PA-C - Last Filed: 01/23/22 20:29> Time Seen by Provider: 01/23/22 16:01 <Ember Vasquez PA-C - Last Filed: 01/23/22 20:29> Source: patient and old records reviewed <MAIA Galvez Last Filed: 01/23/22 20:29> Mode of arrival: ambulatory <Ember Vasquez PA-C - Last Filed: 01/23/22 20:29> Limitations: no limitations <Ember Vasquez PA-C - Last Filed: 01/23/22 20:29> History of Present Illness HPI narrative: Patient is a 76-year-old female who presents the ED with report of right hip pain and possible dislocation. Patient has a history of 3 other previous right hip dislocations since June 2021. Had hip reduced at [facility] the first time, subsequent reductions at [facility] in August and October of this year. Patient had her hip replaced initially in 1990, revised in 2001 by a surgeon at [facility]. She saw her surgeon reportedly 6 weeks ago and was told her hips looked great. Patient reports tonight, she bent over to tie her R shoe when she suddenly felt her hip pop out of place. Significant pain in R hip since then. Brought to ED by . Denies any other injury or fall. Denies numbness, tingling. Patient has tolerated Dilaudid in the past. She reports she had an adverse reaction with hallucinations to the procedural sedation medication used in the last reduction. Per records, Ketamine used in October. Propofol used in August which patient tolerated. <Ember Vasquez PA-C - Last Filed: 01/23/22 20:29> Related Data Home medications: Home Medications Medication Instructions Recorded Confirmed biotin 1 mg capsule 1 mg PO DAILY 10/07/19 01/24/22 calcium carbonate 600 mg calcium 600 mg PO DAILY 10/07/19 01/24/22 (1,500 mg) tablet (Calcium) clonazepam 1 mg tablet (Klonopin) 1 mg PO .hs 03/09/20 06/27/22 cyanocobalamin (vitamin B-12) 1,000 mcg IM WEEKLY 10/07/19 01/24/22 1,000 mcg/mL injection kit cyclobenzaprine 10 mg tablet 10 mg PO TID 10/07/19 01/24/22 cyclosporine 0.05 % eye drops in a 1 drop ophthalmic (eye) Q12H 10/07/19 01/24/22 dropperette (Restasis) estradiol cypionate 5 mg/mL 2.5 mg IM [id number] 10/07/19 01/24/22 intramuscular oil (Depo-Estradiol) finasteride 5 mg tablet 5 mg PO DAILY 10/07/19 01/24/22 gabapentin 600 mg tablet 600 mg PO BID 10/07/19 01/24/22 levothyroxine 175 mcg tablet 175 mcg PO DAILY 10/07/19 01/24/22 liothyronine 5 mcg tablet 5 mcg PO DAILY 10/07/19 01/24/22 magnesium 30 mg tablet 30 mg PO DAILY 10/07/19 01/24/22 multivitamin (Multiple Vitamins 1 tablet PO DAILY 10/07/19 01/24/22 tablet) nabumetone 750 mg tablet 750 mg PO BID 10/07/19 01/24/22 sertraline 50 mg tablet 50 mg PO DAILY 10/07/19 01/24/22 spironolactone 100 mg tablet 200 mg PO DAILY 10/07/19 01/24/22 testosterone cypionate 200 mg/mL 50 mg IM .q2w 10/07/19 01/24/22 intramuscular kit (Testone CIK) amitriptyline 25 mg tablet 25 mg PO ONCE 03/03/20 01/24/22 folic acid 1 mg tablet 2 mg PO DAILY 03/03/20 01/24/22 loteprednol etabonate 0.38 % eye 1 drp ophthalmic (eye) HS 07/28/20 01/24/22 gel drops (Lotemax SM) cetirizine 10 mg tablet (Zyrtec) 10 mg PO DAILY PRN 11/12/21 01/24/22 hydrocodone 10 mg-acetaminophen 1 tablet PO Q6H PRN 11/12/21 01/24/22 325 mg tablet <Ember Vasquez PA-C - Last Filed: 01/23/22 20:29> Allergies/adverse reactions: Allergies Allergy/AdvReac Type Severity Reaction Status Date / Time fentanyl AdvReac Unknown ITCHING Verified 01/24/22 14:07 hydromorphone AdvReac Unknown Itching Verified 01/24/22 14:07 morphine AdvReac Unknown Itching Verified 01/24/22 14:07 <Ember Vasquez PA-C - Last Filed: 01/23/22 20:29> Review of Systems Review of Systems: CONSTITUTIONAL: Denies fever. MUSCULOSKELETAL: Reports R hip pain/dislocation
[2022-01-23] MEDS: HYDROmorphone HCL INJ (*CRX) 1 MG/ML SYR 0.5 MG IV PUSH (16:47)
[2022-01-23] MEDS: SODIUM CHLORIDE 0.9% IV 1,000 ML 1000 ML (16:50)
--- NOTE | 2022-01-23 16:50 | PC.NURSE ---
EDP at bedside for moderate sedation and reduction of right hip. Consent obtained prior to procedure. Dr. Hernandez gave propofol 50mg IV push.
--- NOTE | 2022-01-23 16:55 | PC.NURSE ---
Dr. Hernandez given 30mg propofol IV push with NS running at a TKO rate.
--- NOTE | 2022-01-23 16:58 | PC.NURSE ---
Additional propofol given IV push by Dr. Hernandez, 20mg
--- NOTE | 2022-01-23 17:52 | PC.NURSE ---
Propofol wasted amount 100mg at this time, second RN Foster Robison confirms.
== END 2022-01-23 18:23 | disposition home or self-care (01) ==
PROVIDERS: Emergency Provider Emergency Medicine; PCP Internal Medicine
DX: T84.020A Dislocation of internal right hip prosthesis, initial encounter (principal); E03.9 Hypothyroidism, unspecified; E78.00 Pure hypercholesterolemia, unspecified; M06.9 Rheumatoid arthritis, unspecified; M19.90 Unspecified osteoarthritis, unspecified site; K21.9 Gastro-esophageal reflux disease without esophagitis; F32.A Depression, unspecified; Z96.653 Presence of artificial knee joint, bilateral; Z90.10 Acquired absence of unspecified breast and nipple; Z96.643 Presence of artificial hip joint, bilateral; Z86.2 Personal history of diseases of the blood and blood-forming organs and certain disorders involving the immune mechanism; Z87.19 Personal history of other diseases of the digestive system; Z87.440 Personal history of urinary (tract) infections; Z87.891 Personal history of nicotine dependence; Z98.42 Cataract extraction status, left eye; Z98.41 Cataract extraction status, right eye; Y79.2 Prosthetic and other implants, materials and accessory orthopedic devices associated with adverse incidents
CPT/HCPCS: 27265; 73502; 96374; 99285; J1170; J7030

== ENCOUNTER 2022-02-07 13:33 | Emergency (ER) | payer OTHER, SELFPAY ==
[2022-02-07] VITALS (8 sets, daily range): BP systolic 112–135; BP diastolic 55–80; PULSE 72–80; RESP 12–21; TEMP 36.6–37; O2SAT 94–100
--- NOTE | ~2022-02-07 | XR_ITS ---
XR hip RT min 2V DATE: 02/07/2022 14:50 INDICATION: Postoperative reduction examination TECHNIQUE: Postoperative reduction AP and lateral views right hip COMPARISON: 02/07/2022 prereduction examination FINDINGS: There is interval reduction of the posterior superior dislocation at the right hip joint. No fracture is evident. IMPRESSION: Reduction of right hip dislocation Reviewed, dictated and finalized at location A.
--- NOTE | ~2022-02-07 | XR_ITS ---
XR hip RT 2V w AP pelvis DATE: 02/07/2022 13:50 INDICATION: Hip pain. History of 5 hip dislocations. TECHNIQUE: AP pelvis. AP and lateral views right hip. COMPARISON: 01/23/2022 right hip FINDINGS: There is complete posterior and superior dislocation of the right femoral head prosthesis f rom the acetabular prosthesis. No fracture is evident. Status post left total hip arthroplasty. Normal alignment at the pubic symphysis and sacroiliac joints. IMPRESSION: Posterior superior dislocation of right femoral head prosthesis Reviewed, dictated and finalized at location A.
--- NOTE | 2022-02-07 14:03 | ED.LOWEXIN ---
HPI - Extremity Injury (Lower) General Chief Complaint: Extremity Injury, Lower Stated Complaint: RIGHT HIP DISLOCATION Time Seen by Provider: 02/07/22 13:52 History of Present Illness HPI Narrative: 76-year-old female presents emergency room secondary to a presumed dislocation of her right hip prosthesis. She was sitting on the toilet today. She states the lid was actually down she not exactly sure what she was doing. About she felt her right hip pop out of place. This is the fifth time it has come out. She initially had the hip replacement done at [facility]. She denies any other problems or injuries. Related Data Home Medications Medication Instructions Recorded Confirmed biotin 1 mg capsule 1 mg PO DAILY 10/07/19 01/24/22 calcium carbonate 600 mg calcium 600 mg PO DAILY 10/07/19 01/24/22 (1,500 mg) tablet (Calcium) clonazepam 1 mg tablet (Klonopin) 1 mg PO .hs 10/07/19 01/24/22 cyanocobalamin (vitamin B-12) 1,000 mcg IM WEEKLY 10/07/19 01/24/22 1,000 mcg/mL injection kit cyclobenzaprine 10 mg tablet 10 mg PO TID 10/07/19 01/24/22 cyclosporine 0.05 % eye drops in a 1 drop ophthalmic (eye) Q12H 10/07/19 01/24/22 dropperette (Restasis) estradiol cypionate 5 mg/mL 2.5 mg IM [id number] 10/07/19 01/24/22 intramuscular oil (Depo-Estradiol) finasteride 5 mg tablet 5 mg PO DAILY 10/07/19 01/24/22 gabapentin 600 mg tablet 600 mg PO BID 10/07/19 01/24/22 levothyroxine 175 mcg tablet 175 mcg PO DAILY 10/07/19 01/24/22 liothyronine 5 mcg tablet 5 mcg PO DAILY 10/07/19 01/24/22 magnesium 30 mg tablet 30 mg PO DAILY 10/07/19 01/24/22 multivitamin (Multiple Vitamins 1 tablet PO DAILY 10/07/19 01/24/22 tablet) nabumetone 750 mg tablet 750 mg PO BID 10/07/19 01/24/22 sertraline 50 mg tablet 50 mg PO DAILY 10/07/19 01/24/22 spironolactone 100 mg tablet 200 mg PO DAILY 10/07/19 01/24/22 testosterone cypionate 200 mg/mL 50 mg IM .q2w 10/07/19 01/24/22 intramuscular kit (TestoBaz CIK) amitriptyline 25 mg tablet 25 mg PO ONCE 03/03/20 01/24/22 folic acid 1 mg tablet 2 mg PO DAILY 03/03/20 01/24/22 loteprednol etabonate 0.38 % eye 1 drp ophthalmic (eye) HS 07/28/20 01/24/22 gel drops (Lotemax SM) cetirizine 10 mg tablet (Zyrtec) 10 mg PO DAILY PRN 11/12/21 01/24/22 hydrocodone 10 mg-acetaminophen 1 tablet PO Q6H PRN 11/12/21 01/24/22 325 mg tablet Allergies Allergy/AdvReac Type Severity Reaction Status Date / Time fentanyl AdvReac Unknown ITCHING Verified 01/24/22 14:07 hydromorphone AdvReac Unknown Itching Verified 01/24/22 14:07 morphine AdvReac Unknown Itching Verified 01/24/22 14:07 Review of Systems Review of Systems: CONSTITUTIONAL: Denies fever, chills, or sweats. EYES: Denies visual changes, redness, or discharge. ENT: Denies rhinorrhea, congestion, sore throat, or otalgia. CARDIOVASCULAR: Denies chest pain, palpitations, or edema. RESPIRATORY: Denies cough or dyspnea. GASTROINTESTINAL: Denies abdominal pain, nausea, vomiting, or diarrhea. GENITOURINARY: Denies dysuria or hematuria. SKIN: Denies rash or itching. MUSCULOSKELETAL: Pain to the right hip. NEUROLOGIC: Denies headache, numbness, or weakness. PSYCHIATRIC: Denies anxiety or depression. [facility] Past Medical History Medical History Anemia Back pain with history of spinal surgery Cataracts, bilateral Depression GERD (gastroesophageal reflux disease) History of GI bleed History of rectal polyps History of revision 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teral knee replacement History of bladder surgery History of hysterectomy History of mastectomy History of tonsillectomy History of total hip re
--- NOTE | 2022-02-07 14:59 | PC.NURSE ---
1431 edP in room for right hip reduction, 7 mg etomidate ordered verbally. 7 mg of etomidate given to patient. patient sedated and xray in room. 1440 4 mg etomidate ordered and given to continue moderate sedation. patient resting comfortably.
== END 2022-02-07 16:44 | disposition home or self-care (01) ==
PROVIDERS: Emergency Provider Emergency Medicine; PCP Internal Medicine
DX: T84.020A Dislocation of internal right hip prosthesis, initial encounter (principal); E78.00 Pure hypercholesterolemia, unspecified; E03.9 Hypothyroidism, unspecified; K58.9 Irritable bowel syndrome, unspecified; K21.9 Gastro-esophageal reflux disease without esophagitis; M06.9 Rheumatoid arthritis, unspecified; M19.90 Unspecified osteoarthritis, unspecified site; F32.A Depression, unspecified; Z96.653 Presence of artificial knee joint, bilateral; Z96.643 Presence of artificial hip joint, bilateral; Z90.10 Acquired absence of unspecified breast and nipple; Z87.440 Personal history of urinary (tract) infections; Z87.19 Personal history of other diseases of the digestive system; Z86.2 Personal history of diseases of the blood and blood-forming organs and certain disorders involving the immune mechanism; Z98.42 Cataract extraction status, left eye; Z98.41 Cataract extraction status, right eye; Z87.891 Personal history of nicotine dependence; Y79.2 Prosthetic and other implants, materials and accessory orthopedic devices associated with adverse incidents
CPT/HCPCS: 27265; 73502; 99285

== ENCOUNTER 2022-03-12 14:10 | Emergency (ER) | payer OTHER, SELFPAY ==
--- NOTE | ~2022-03-12 | XR_ITS ---
XR tibia fibula RT 2V 03/12/2022 14:47 INDICATION: Right leg pain. Anterior laceration. PROCEDURE: 2 views right tibia/fibula COMPARISON: 11/06/2008 FINDINGS: Fracture, dislocation or subluxation is not identified. There is a medial unicompartmental knee arthroplasty. The soft tissues appear within normal limits. No foreign bodies are identified. IMPRESSION: 1: NO ACUTE BONE OR JOINT ABNORMALITY IDENTIFIED. Reviewed, dictated and finalized at location A.
[2022-03-12 14:21] VITALS: BP 112/63; PULSE 70; RESP 15; TEMP 36.4; O2SAT 100
--- NOTE | 2022-03-12 15:28 | ED.WOUNDLAC ---
HPI - Wound/Laceration General Chief Complaint: Wound/Laceration Stated Complaint: laceration Time Seen by Provider: 03/12/22 14:37 History of Present Illness HPI narrative: Patient is 76-year-old female here for evaluation of laceration sustained to her right anterior najera about 1 hour prior to arrival. Patient states that she was working in the garage, felt something sharp on her leg, looked down and noticed she was bleeding. She does not know what she cut her leg on. She is unsure of her last tetanus shot. Denies any falls or other injuries sustained in the incident. Her applied steri-strips and they came directly to the ED. No difficulty moving the foot or walking on the leg. No blood thinner use. She is wearing a hip immobilizer due to frequent hip dislocations. Related Data Home Medications Medication Instructions Recorded Confirmed biotin 1 mg capsule 1 mg PO DAILY 10/07/19 03/01/22 calcium carbonate 600 mg calcium 600 mg PO DAILY 10/07/19 03/01/22 (1,500 mg) tablet (Calcium) clonazepam 1 mg tablet (Klonopin) 1 mg PO .hs 10/07/19 03/01/22 cyanocobalamin (vitamin B-12) 1,000 mcg IM WEEKLY 10/07/19 03/01/22 1,000 mcg/mL injection kit cyclobenzaprine 10 mg tablet 10 mg PO TID 10/07/19 03/01/22 cyclosporine 0.05 % eye drops in a 1 drop ophthalmic (eye) Q12H 10/07/19 03/01/22 dropperette (Restasis) estradiol cypionate 5 mg/mL 2.5 mg IM [id number] 10/07/19 03/01/22 intramuscular oil (Depo-Estradiol) finasteride 5 mg tablet 5 mg PO DAILY 10/07/19 03/01/22 gabapentin 600 mg tablet 600 mg PO BID 10/07/19 03/01/22 levothyroxine 175 mcg tablet 175 mcg PO DAILY 10/07/19 03/01/22 liothyronine 5 mcg tablet 5 mcg PO DAILY 10/07/19 03/01/22 magnesium 30 mg tablet 30 mg PO DAILY 10/07/19 03/01/22 multivitamin (Multiple Vitamins 1 tablet PO DAILY 10/07/19 03/01/22 tablet) nabumetone 750 mg tablet 750 mg PO BID 10/07/19 03/01/22 sertraline 50 mg tablet 50 mg PO DAILY 10/07/19 03/01/22 spironolactone 100 mg tablet 200 mg PO DAILY 10/07/19 03/01/22 testosterone cypionate 200 mg/mL 50 mg IM .q2w 10/07/19 03/01/22 intramuscular kit (Testone CIK) amitriptyline 25 mg tablet 25 mg PO ONCE 03/03/20 03/01/22 folic acid 1 mg tablet 2 mg PO DAILY 03/03/20 03/01/22 loteprednol etabonate 0.38 % eye 1 drp ophthalmic (eye) HS 07/28/20 03/01/22 gel drops (Lotemax SM) cetirizine 10 mg tablet (Zyrtec) 10 mg PO DAILY PRN 11/12/21 03/01/22 hydrocodone 10 mg-acetaminophen 1 tablet PO Q6H PRN 11/12/21 03/01/22 325 mg tablet Allergies Allergy/AdvReac Type Severity Reaction Status Date / Time fentanyl AdvReac Unknown ITCHING Verified 03/01/22 15:10 hydromorphone AdvReac Unknown Itching Verified 03/01/22 15:10 morphine AdvReac Unknown Itching Verified 03/01/22 15:10 Review of Systems Review of Systems: Gen: Denies fevers or chills Eyes: Denies eye pain or visual change ENT: Denies congestion Respiratory: Denies shortness of breath or cough CV: Denies chest pain or palpitations GI: Denies abdominal pain nausea, emesis or diarrhea : denies burning, urgency, frequency or hematuria Musculoskeletal: Denies back pain or muscle pain Neuro: Denies numbness, tingling, weakness or focal weakness Skin: Reports laceration to right najera Except as documented, all other systems reviewed and negative PMFSH Past Medical History Medical History Anemia Back pain with history of spinal surgery Cataracts, bilateral Depression GERD (gastroesophageal reflux disease) History of GI bleed History of rectal polyps History of revision 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
[2022-03-12] MEDS: TETANUS,DIPHTHERIA,AC PERTUSSIS ADULT (0.5 ML) BOOSTRIX IM (16:09)
[2022-03-12 18:01] VITALS: BP 110/64; PULSE 71; RESP 18; O2SAT 100
== END 2022-03-12 18:02 | disposition home or self-care (01) ==
PROVIDERS: Emergency Provider Emergency Medicine; PCP Internal Medicine
DX: S81.811A Laceration without foreign body, right lower leg, initial encounter (principal); Z23 Encounter for immunization; E78.00 Pure hypercholesterolemia, unspecified; E03.9 Hypothyroidism, unspecified; M06.9 Rheumatoid arthritis, unspecified; M19.90 Unspecified osteoarthritis, unspecified site; K58.9 Irritable bowel syndrome, unspecified; K21.9 Gastro-esophageal reflux disease without esophagitis; F32.A Depression, unspecified; Z96.653 Presence of artificial knee joint, bilateral; Z96.643 Presence of artificial hip joint, bilateral; Z87.440 Personal history of urinary (tract) infections; Z87.19 Personal history of other diseases of the digestive system; Z90.10 Acquired absence of unspecified breast and nipple; Z90.710 Acquired absence of both cervix and uterus; Z98.42 Cataract extraction status, left eye; Z98.41 Cataract extraction status, right eye; Z87.891 Personal history of nicotine dependence; W26.9XXA Contact with unspecified sharp object(s), initial encounter
CPT/HCPCS: 12034; 73590; 90471; 90715; 99283

== ENCOUNTER 2022-03-17 16:28 | Emergency (ER) | payer OTHER, SELFPAY ==
[2022-03-17] VITALS (32 sets, daily range): BP systolic 96–121; BP diastolic 48–84; PULSE 64–86; RESP 9–19; TEMP 36.3–37; O2SAT 96–100
--- NOTE | ~2022-03-17 | XR_ITS ---
EXAMINATION: XR hip RT min 2V DATE: 03/17/2022 16:52 INDICATION: Right hip dislocation. TECHNIQUE: 2 views of right hip were obtained. COMPARISON: Right hip radiographs 02/07/2022 FINDINGS: There is a total right hip arthroplasty. There is lateral and proximal dislocation of the f emoral component with respect to the acetabular component. No fracture. No periprosthetic lucency to suggest loosening or infection. Partially visualized is a total left hip arthroplasty. IMPRESSION: 1. Dislocated total right hip arthroplasty. Reviewed, dictated and finalized at location [facility].
--- NOTE | ~2022-03-17 | XR_ITS ---
EXAMINATION: XR hip RT 1V DATE: 03/17/2022 17:51 INDICATION: Right hip dislocation status post reduction. TECHNIQUE: A single view of right hip was obtained. COMPARISON: Right hip radiographs at 4:44 PM, 02/07/2022 FINDINGS: There is a total right hip arthroplasty in near-anatomic alignment. There is asymmetric godfrey er wear. No fracture. No periprosthetic lucencies to suggest loosening or infection. IMPRESSION: 1. Total right hip arthroplasty in near-anatomic alignment. 2. Asymmetric liner wear of the right hip arthroplasty. Reviewed, dictated and finalized at location [facility].
[2022-03-17] MEDS: PROPOFOL IV EMULSION 200 MG/20 ML VIAL 70 MG IV PUSH (17:43)
[2022-03-17] MEDS: SODIUM CHLORIDE 0.9% IV 1,000 ML 999 ML (17:44)
--- NOTE | 2022-03-17 19:33 | ED.LOWEXIN ---
HPI - Extremity Injury (Lower) General Chief Complaint: Extremity Injury, Lower Stated Complaint: fall precautions - rt hip Time Seen by Provider: 03/17/22 17:06 Source: patient Mode of arrival: EMS Limitations: no limitations History of Present Illness HPI Narrative: 76-year-old with a history of recurrent right hip dislocation here with right hip pain. Patient states that while she was trying to get out of the toilet seat belt her hip gave out. She states that this has been happening several times. Onset (ago): minute(s) (30) Place: home Severity: moderate Relieving factors: nothing Exacerbating factors: movement Associated symptoms: unable to bear weight Other symptoms: none Related Data Home Medications Medication Instructions Recorded Confirmed calcium carbonate 600 mg calcium 600 mg PO DAILY 10/07/19 03/14/22 (1,500 mg) tablet (Calcium) clonazepam 1 mg tablet (Klonopin) 1 mg PO .hs 10/07/19 03/14/22 cyanocobalamin (vitamin B-12) 1,000 mcg IM WEEKLY 10/07/19 03/14/22 1,000 mcg/mL injection kit cyclobenzaprine 10 mg tablet 10 mg PO TID 10/07/19 03/14/22 cyclosporine 0.05 % eye drops in a 1 drop ophthalmic (eye) Q12H 10/07/19 03/14/22 dropperette (Restasis) estradiol cypionate 5 mg/mL 2.5 mg IM [id number] 10/07/19 03/14/22 intramuscular oil (Depo-Estradiol) finasteride 5 mg tablet 5 mg PO DAILY 10/07/19 03/14/22 gabapentin 600 mg tablet 600 mg PO BID 10/07/19 03/14/22 levothyroxine 175 mcg tablet 175 mcg PO DAILY 10/07/19 03/14/22 liothyronine 5 mcg tablet 5 mcg PO DAILY 10/07/19 03/14/22 magnesium 30 mg tablet 30 mg PO DAILY 10/07/19 03/14/22 multivitamin (Multiple Vitamins 1 tablet PO DAILY 10/07/19 03/14/22 tablet) nabumetone 750 mg tablet 750 mg PO BID 10/07/19 03/14/22 sertraline 50 mg tablet 50 mg PO DAILY 10/07/19 03/14/22 spironolactone 100 mg tablet 200 mg PO DAILY 10/07/19 03/14/22 testosterone cypionate 200 mg/mL 50 mg IM .q2w 10/07/19 03/14/22 intramuscular kit (Testone CIK) amitriptyline 25 mg tablet 25 mg PO ONCE 03/03/20 03/14/22 folic acid 1 mg tablet 2 mg PO DAILY 03/03/20 03/14/22 loteprednol etabonate 0.38 % eye 1 drp ophthalmic (eye) HS 07/28/20 03/14/22 gel drops (Lotemax SM) cetirizine 10 mg tablet (Zyrtec) 10 mg PO DAILY 11/12/21 03/14/22 hydrocodone 10 mg-acetaminophen 1 tablet PO Q6H PRN Pain 11/12/21 03/14/22 325 mg tablet Allergies Allergy/AdvReac Type Severity Reaction Status Date / Time fentanyl AdvReac Unknown ITCHING Verified 03/17/22 16:34 hydromorphone AdvReac Unknown Itching Verified 03/17/22 16:34 morphine AdvReac Unknown Itching Verified 03/17/22 16:34 Review of Systems Review of Systems: All systems reviewed & are unremarkable except as noted in HPI and below Constitutional: Constitutional: Reports no additional constitutional complaints Eyes: Eyes: Reports no additional eye complaints ENT: Reports system reviewed and no additional complaints, except as documented Cardiovascular: Cardiovascular: Reports no additional cardiovascular complaints Respiratory: Respiratory: Reports no additional respiratory complaints Gastrointestinal: Gastrointestinal: Reports no additional gastrointestinal complaints Musculoskeletal: Musculoskeletal: Reports as per HPI Neurologic: Reports system reviewed and no additional complaints, except as documented Psychiatric: Psychiatric: Reports no additional psychiatric complaints [facility] Past Medical History Medical History Anemia Back pain with history of spinal surgery Cataracts, bilateral Depression GERD (gastroesophageal reflux disease) History of GI bleed History of rectal polyps History of revision of total replacement 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
== END 2022-03-17 20:04 | disposition home or self-care (01) ==
PROVIDERS: Emergency Provider Family Medicine; PCP Internal Medicine
DX: T84.020A Dislocation of internal right hip prosthesis, initial encounter (principal); E03.9 Hypothyroidism, unspecified; E78.00 Pure hypercholesterolemia, unspecified; M06.9 Rheumatoid arthritis, unspecified; M19.90 Unspecified osteoarthritis, unspecified site; K58.9 Irritable bowel syndrome, unspecified; K21.9 Gastro-esophageal reflux disease without esophagitis; F32.A Depression, unspecified; Z96.653 Presence of artificial knee joint, bilateral; Z96.643 Presence of artificial hip joint, bilateral; Z98.42 Cataract extraction status, left eye; Z98.41 Cataract extraction status, right eye; Z86.2 Personal history of diseases of the blood and blood-forming organs and certain disorders involving the immune mechanism; Z87.19 Personal history of other diseases of the digestive system; Z87.440 Personal history of urinary (tract) infections; Z90.10 Acquired absence of unspecified breast and nipple; Z87.891 Personal history of nicotine dependence; Y79.2 Prosthetic and other implants, materials and accessory orthopedic devices associated with adverse incidents
CPT/HCPCS: 27266; 73501; 73502; 99285; J2704; J7030

== ENCOUNTER 2022-06-03 15:41 | Emergency (ER) | payer OTHER, SELFPAY ==
[2022-06-03] VITALS (15 sets, daily range): BP systolic 122–147; BP diastolic 53–82; PULSE 57–78; RESP 12–21; TEMP 36.7–36.8; O2SAT 95–100
--- NOTE | ~2022-06-03 | CT_ITS ---
EXAMINATION: CT brain wo con DATE: 06/03/2022 17:17 INDICATION: Ground-level fall. Right temporal hematoma. TECHNIQUE: Computed tomography (CT) of the head was performed without intravenous contrast. The mA wa s adjusted according to patient size. Iterative reconstruction technique was employed. Exam dose: 60 5.33 mGy-cm total exam DLP. COMPARISON: 09/24/2019 CT brain FINDINGS: No intracranial mass lesion or hemorrhage or cerebrovascular accident. No midline shift or mass effect. . Normal ventricular size. No subdural or epidural hematoma. No fracture or bone destruction of the cranial vault. The mastoid air cells and paranasal sinuses are normally developed and aerated. IMPRESSION: No acute intracranial finding or skull fracture Reviewed, dictated and finalized at [facility]. Reviewed, dictated and finalized at location [facility].
--- NOTE | ~2022-06-03 | XR_ITS ---
XR hip RT min 2V DATE: 06/03/2022 18:18 INDICATION: Postoperative reduction examination TECHNIQUE: AP and crosstable lateral views COMPARISON: 05/2022 prereduction AP pelvis right hip Serial right hip radiographs dating back to numerous FINDINGS: There is reduction of the dislocated right femoral head prosthesis. IMPRESSION: Reduction of dislocation at right hip arthroplasty Reviewed, dictated and finalized at location [facility].
--- NOTE | ~2022-06-03 | XR_ITS ---
XR hip RT 2V w AP pelvis 06/03/2022 16:27 Indication: Right hip pain Procedure: AP pelvis and 2 views right hip Comparison: Comparison to multiple prior studies sequentially, with oldest reviewed study dated 02/07. Findings: There are bilateral hip arthroplasties. There is lateral and proximal dislocation of the fe moral component with respect to the acetabular component. No underlying fracture. No periprosthetic l ucency. Impression: 1: Dislocated right total hip arthroplasty. Reviewed, dictated and finalized at location [facility]. Impression: 1: Dislocated right total hip arthroplasty.
[2022-06-03] MEDS: SODIUM CHLORIDE 0.9% IV 1,000 ML 999 ML IV CONT (17:34)
[2022-06-03 17:41] LABS: Basophils Percent Auto 0.8 % (0.2-1.2); Eosinophils Absolute Auto 0.1 K/mm3 (0-0.3); Eosinophils Percent Auto 2.1 % (0-4.4); Hemoglobin 10.9 g/dL (12.0-15.0); Immature Granulocyte Absolute 0.02 K/mm3 (0.00-0.031); Immature Granulocyte Percent A 0.5 % (0-0.5); Lymphocytes Absolute Auto 1.28 K/mm3 (0.9-3.2); Lymphocytes Percent Auto 33.6 % (18.3-44.2); Mean Corpuscular HGB Conc 32.1 g/dl (32-36); Mean Corpuscular Hemoglobin 34.5 pg (26-34); Mean Corpuscular Volume 107.6 fl (80-100); Mean Platelet Volume 9.8 fl (7.4-10.4); Monocytes Absolute Auto 0.2 K/mm3 (0.1-0.6); Monocytes Percent Auto 5.2 % (2.6-8.5); Neutrophils Absolute Auto 2.2 K/mm3 (1.3-6.7); Neutrophils Percent Auto 57.8 % (45.5-73.1); Platelet Count Result 225 k/mm3 (150-375); Red Blood Count 3.16 M/mm3 (4.2-5.4); Red Cell Distribution Width 14.2 % (11.5-14.5); White Blood Count 3.8 K/mm3 (4.5-10.0)
[2022-06-03 17:51] LABS: Anion Gap 10 mmol/L (8-16); Blood Urea Nitrogen 21 mg/dL (7-17); Calcium 8.7 mg/dL (8.4-10.2); Carbon Dioxide 27 mmol/L (22-30); Chloride 101 mmol/L (98-107); Estimated CRCL calculation 35 ml/min; Estimated Glomerular Filt Rate 48; Glucose 86 mg/dL (65-110); Potassium 4.1 mmol/L (3.4-5.0); Sodium 138 mmol/L (137-145)
[2022-06-03] MEDS: ETOMIDATE 20 MG/10 ML AMPUL 10 MG IV PUSH (18:00)
--- NOTE | 2022-06-03 18:09 | ED.GENADULT ---
HPI - General Adult General Chief complaint: Extremity Injury, Lower Stated complaint: R hip dislocation s/p fall Time Seen by Provider: 06/03/22 16:48 Related Data Home Medications Medication Instructions Recorded Confirmed calcium carbonate 600 mg calcium 600 mg PO DAILY 10/07/19 04/19/22 (1,500 mg) tablet (Calcium) clonazepam 1 mg tablet (Klonopin) 1 mg PO .hs 10/07/19 04/19/22 cyanocobalamin (vitamin B-12) 1,000 mcg IM WEEKLY 10/07/19 04/19/22 1,000 mcg/mL injection kit cyclobenzaprine 10 mg tablet 10 mg PO TID 10/07/19 04/19/22 cyclosporine 0.05 % eye drops in a 1 drop ophthalmic (eye) Q12H 10/07/19 04/19/22 dropperette (Restasis) estradiol cypionate 5 mg/mL 2.5 mg IM [id number] 10/07/19 04/19/22 intramuscular oil (Depo-Estradiol) finasteride 5 mg tablet 5 mg PO DAILY 10/07/19 04/19/22 gabapentin 600 mg tablet 600 mg PO BID 10/07/19 04/19/22 levothyroxine 175 mcg tablet 175 mcg PO DAILY 10/07/19 04/19/22 liothyronine 5 mcg tablet 5 mcg PO DAILY 10/07/19 04/19/22 magnesium 30 mg tablet 30 mg PO DAILY 10/07/19 04/19/22 multivitamin (Multiple Vitamins 1 tablet PO DAILY 10/07/19 04/19/22 tablet) nabumetone 750 mg tablet 750 mg PO BID 10/07/19 04/19/22 sertraline 50 mg tablet 50 mg PO DAILY 10/07/19 04/19/22 spironolactone 100 mg tablet 200 mg PO DAILY 10/07/19 04/19/22 testosterone cypionate 200 mg/mL 50 mg IM .q2w 10/07/19 04/19/22 intramuscular kit (Testone CIK) amitriptyline 25 mg tablet 25 mg PO ONCE 03/03/20 04/19/22 folic acid 1 mg tablet 2 mg PO DAILY 03/03/20 04/19/22 loteprednol etabonate 0.38 % eye 1 drp ophthalmic (eye) HS 07/28/20 04/19/22 gel drops (Lotemax SM) cetirizine 10 mg tablet (Zyrtec) 10 mg PO DAILY 11/12/21 04/19/22 hydrocodone 10 mg-acetaminophen 1 tablet PO Q6H PRN Pain 11/12/21 04/19/22 325 mg tablet pantoprazole 20 mg tablet,delayed 20 mg PO QAM 03/29/22 04/19/22 release Allergies Allergy/AdvReac Type Severity Reaction Status Date / Time fentanyl AdvReac Unknown ITCHING Verified 06/03/22 15:45 hydromorphone AdvReac Unknown Itching Verified 06/03/22 15:45 morphine AdvReac Unknown Itching Verified 06/03/22 15:45 PMFSH Past Medical History Medical History Anemia Back pain with history of spinal surgery Cataracts, bilateral Depression GERD (gastroesophageal reflux disease) History of GI bleed History of rectal polyps History of revision 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teral knee replacement History of bladder surgery History of hysterectomy History of mastectomy History of tonsillectomy History of total hip replacement JOSÉ MIGUEL. Hx of bilateral cataract extraction Hx of cardiac cath Hx of tubal ligation Family History Family History Father Patient's father is Family history of thyroid disease Family history of cataracts Family history of heart disease in male family member before age 55 Family history of hearing loss Sibling Family history of thyroid disease Family history of obesity Family history of mental disorder Depression Family history of arthritis Family history of diabetes mellitus in first degree relative Family history of atrial fibrillation Mother Family history of cataracts Family history of anemia Cerebrovascular accident Family history of hearing loss Other Family history of malignant neoplasm Social History Social History Smoking status: Former smoker Second hand tobacco smoke exposure: No Smoking end date: 07/31/88 Alcohol inta
[2022-06-03] MEDS: KETOROLAC 15 MG/ML VIAL (*BKC) IV PUSH (19:32)
== END 2022-06-03 20:25 | disposition home or self-care (01) ==
PROVIDERS: Emergency Provider Emergency Medicine; PCP Internal Medicine
DX: T84.020A Dislocation of internal right hip prosthesis, initial encounter (principal); S09.90XA Unspecified injury of head, initial encounter; D64.9 Anemia, unspecified; E78.00 Pure hypercholesterolemia, unspecified; E03.9 Hypothyroidism, unspecified; K58.9 Irritable bowel syndrome, unspecified; K21.9 Gastro-esophageal reflux disease without esophagitis; M06.9 Rheumatoid arthritis, unspecified; M19.90 Unspecified osteoarthritis, unspecified site; Z96.643 Presence of artificial hip joint, bilateral; Z96.653 Presence of artificial knee joint, bilateral; Z98.42 Cataract extraction status, left eye; Z98.41 Cataract extraction status, right eye; Z90.710 Acquired absence of both cervix and uterus; Z90.10 Acquired absence of unspecified breast and nipple; Z87.19 Personal history of other diseases of the digestive system; Z87.440 Personal history of urinary (tract) infections; W18.39XA Other fall on same level, initial encounter
CPT/HCPCS: 27265; 36415; 70450; 73502; 80048; 85025; 96374; 96375; 99285; J0131; J1885; J7030

== ENCOUNTER 2022-06-08 18:48 | Emergency (ER) | payer OTHER, SELFPAY ==
[2022-06-08] VITALS (9 sets, daily range): BP systolic 130–135; BP diastolic 54–95; PULSE 76–86; RESP 10–18; TEMP 37.1; O2SAT 95–100
--- NOTE | ~2022-06-08 | XR_ITS ---
EXAM: XR hip RT 2V w AP pelvis DATE: 06/08/2022 19:38 HISTORY: right hip pain . COMPARISON: 06/03/2022. FINDINGS: Bilateral hip arthroplasties. Decreased mineralization. The right femoral component is dis located superiorly. No hardware fracture or perihardware lucency. No osseous fracture. No lytic or bl astic lesion. Degenerative change in the lumbar spine. No erosion or periosteal change. Soft tissues within normal limits. IMPRESSION: Dislocated right hip arthroplasty. Reviewed, dictated and finalized at location [facility]. [employer]
--- NOTE | ~2022-06-08 | XR_ITS ---
EXAM: XR pelvis 1-2V DATE: 06/08/2022 21:56 HISTORY: post-reduction . COMPARISON: Same date at 7:14 PM, 06/03/2022 at 6:12 PM, 03/17/2022 at 5:46 PM. FINDINGS/IMPRESSION: Successful interval reduction of the dislocated right hip arthroplasty. Redemons tration of asymmetric liner wear. Reviewed, dictated and finalized at location [facility]. 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
--- NOTE | 2022-06-08 19:29 | ED.LOWEXIN ---
HPI - Extremity Injury (Lower) General Chief Complaint: Extremity Injury, Lower Stated Complaint: POSSIBLE HIP DISLOCATION Time Seen by Provider: 06/08/22 18:56 History of Present Illness HPI Narrative: 76-year-old female presenting to the emergency department for evaluation of a right hip pain. Patient suspects that she did dislocate her right hip. Patient had a hip replacement approximately 20 years ago by her [id number]. Patient states over the course of the last year she has had approximately 7 dislocations. She had dislocation last week which occurred while she was bending over. Dislocation today occurred while she was sitting in her chair resting. Patient denies any falls or injuries. Related Data Home Medications Medication Instructions Recorded Confirmed calcium carbonate 600 mg calcium 600 mg PO DAILY 10/07/19 04/19/22 (1,500 mg) tablet (Calcium) clonazepam 1 mg tablet (Klonopin) 1 mg PO .hs 10/07/19 04/19/22 cyanocobalamin (vitamin B-12) 1,000 mcg IM WEEKLY 10/07/19 04/19/22 1,000 mcg/mL injection kit cyclobenzaprine 10 mg tablet 10 mg PO TID 10/07/19 04/19/22 cyclosporine 0.05 % eye drops in a 1 drop ophthalmic (eye) Q12H 10/07/19 04/19/22 dropperette (Restasis) estradiol cypionate 5 mg/mL 2.5 mg IM [id number] 10/07/19 04/19/22 intramuscular oil (Depo-Estradiol) finasteride 5 mg tablet 5 mg PO DAILY 10/07/19 04/19/22 gabapentin 600 mg tablet 600 mg PO BID 10/07/19 04/19/22 levothyroxine 175 mcg tablet 175 mcg PO DAILY 10/07/19 04/19/22 liothyronine 5 mcg tablet 5 mcg PO DAILY 10/07/19 04/19/22 magnesium 30 mg tablet 30 mg PO DAILY 10/07/19 04/19/22 multivitamin (Multiple Vitamins 1 tablet PO DAILY 10/07/19 04/19/22 tablet) nabumetone 750 mg tablet 750 mg PO BID 10/07/19 04/19/22 sertraline 50 mg tablet 50 mg PO DAILY 10/07/19 04/19/22 spironolactone 100 mg tablet 200 mg PO DAILY 10/07/19 04/19/22 testosterone cypionate 200 mg/mL 50 mg IM .q2w 10/07/19 04/19/22 intramuscular kit (Testone CIK) amitriptyline 25 mg tablet 25 mg PO ONCE 03/03/20 04/19/22 folic acid 1 mg tablet 2 mg PO DAILY 03/03/20 04/19/22 loteprednol etabonate 0.38 % eye 1 drp ophthalmic (eye) HS 07/28/20 04/19/22 gel drops (Lotemax SM) cetirizine 10 mg tablet (Zyrtec) 10 mg PO DAILY 11/12/21 04/19/22 hydrocodone 10 mg-acetaminophen 1 tablet PO Q6H PRN Pain 11/12/21 04/19/22 325 mg tablet pantoprazole 20 mg tablet,delayed 20 mg PO QAM 03/29/22 04/19/22 release Allergies Allergy/AdvReac Type Severity Reaction Status Date / Time fentanyl AdvReac Unknown ITCHING Verified 06/03/22 15:45 hydromorphone AdvReac Unknown Itching Verified 06/03/22 15:45 morphine AdvReac Unknown Itching Verified 06/03/22 15:45 Review of Systems Review of Systems: CONSTITUTIONAL: Denies fever, chills, or sweats. EYES: Denies visual changes, redness, or discharge. ENT: Denies rhinorrhea, congestion, sore throat, or otalgia. CARDIOVASCULAR: Denies chest pain, palpitations, or edema. RESPIRATORY: Denies cough or dyspnea. GASTROINTESTINAL: Denies abdominal pain, nausea, vomiting, or diarrhea. GENITOURINARY: Denies dysuria or hematuria. SKIN: Denies rash or itching. MUSCULOSKELETAL: See HPI NEUROLOGIC: Denies headache, numbness, or weakness. PSYCHIATRIC: Denies anxiety or depression. [facility] Past Medical History Medical History Anemia Back pain with history of spinal surgery Cataracts, bilateral Depression GERD (gastroesophageal reflux disease) History of GI bleed History of rectal polyps History of revision 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teral knee replacement History of
[2022-06-08] MEDS: HYDROmorphone HCL INJ (*CRX) 1 MG/ML SYR 0.5 MG IV PUSH (19:50)
[2022-06-08] MEDS: diphenhydrAMINE HCl INJ 50 MG/ML VIAL 25 MG IV PUSH (19:52)
--- NOTE | 2022-06-08 22:16 | PC.NURSE ---
2134 intial vs 2136 Time out 2138 7mg in propofol in 2143 5mg propofol 2149 procedure ended 2104 pt awake alert on RA 2119 pt awak alert on RA
== END 2022-06-08 23:19 | disposition home or self-care (01) ==
PROVIDERS: Emergency Provider Emergency Medicine; PCP Internal Medicine
DX: T84.020A Dislocation of internal right hip prosthesis, initial encounter (principal); X58.XXXA Exposure to other specified factors, initial encounter; D64.9 Anemia, unspecified; K21.9 Gastro-esophageal reflux disease without esophagitis; E03.9 Hypothyroidism, unspecified; M06.9 Rheumatoid arthritis, unspecified; Z87.440 Personal history of urinary (tract) infections
CPT/HCPCS: 27266; 72170; 73502; 96374; 96375; 99285; J1170; J1200

== ENCOUNTER → 2023-03-27 13:13 | Outpatient (CLI) | payer OTHER, SELFPAY ==
--- NOTE | ~2023-03-27 | MM_ITS ---
EXAMINATION: MM screening [facility] BI w jason HISTORY: Screening mammogram TECHNIQUE: Craniocaudal and mediolateral oblique 3-D tomosynthesis images were obtained and synthetic 2-D images were generated. CAD analysis was submitted and interpreted. COMPARISON: 03/19/2021, 11/01/2019, 07/17/2018 BREAST PARENCHYMAL COMPOSITION: There are scattered areas of fibroglandular density. FINDINGS: No suspicious mass, calcification, or architectural distortion are identified in either miquel ast to suggest malignancy. There has been no suspicious interval change. IMPRESSION: 1. No mammographic evidence of malignancy. 2. Recommend routine screening mammography in one year. BI-RADS Category 1: Negative Reviewed, dictated and finalized at location [facility].
== END ==
PROVIDERS: PCP Obstetrics & Gynecology; Visit Provider Obstetrics & Gynecology
DX: Z12.31 Encounter for screening mammogram for malignant neoplasm of breast (principal)
CPT/HCPCS: 77063; 77067

== ENCOUNTER 2023-04-21 11:49 | Outpatient (CLI) | payer OTHER, SELFPAY ==
--- NOTE | ~2023-04-21 | XR_ITS ---
Clinical Indication: Cough PA and lateral views of the chest: Comparison: 10/07/2019 Findings: The lungs are clear, without evidence of focal consolidation or pleural effusion. Cardiome diastinal silhouette is within normal limits. Suspected vertebroplasty cement at T12 and L1. Impression: Clear lungs. Probable vertebroplasty cement at T12 and L1. Correlate with procedural history. Reviewed, dictated and finalized at [place] [facility]. Impression: Clear lungs. Probable vertebroplasty cement at T12 and L1. Correlate with procedural history .
== END 2023-04-21 11:50 ==
PROVIDERS: Visit Provider Physician Assistant
DX: R05.9 Cough, unspecified (principal)
CPT/HCPCS: 71046

== ENCOUNTER 2023-06-09 17:39 | Emergency (ER) | payer OTHER, SELFPAY ==
--- NOTE | 2023-06-09 17:46 | ED.EXTPRO ---
HPI - Extremity Problem General Chief complaint: Extremity Problem,Nontraumatic Stated complaint: Left Calf Swollen Time Seen by Provider: 06/09/23 17:46 Source: patient Mode of arrival: ambulatory Limitations: no limitations History of Present Illness HPI Narrative: Marce is a 77-year-old female patient presenting to the clinic today with complaints of left calf pain/swelling x1 week. Also complaining of oral pharyngeal thrush. She reports she had a endoscope last week and was diagnosed with thrush. She has been taking clotrimazole lozenges without relief. States her throat/tongue is painful and itchy. Denies any known injury to the left calf. States she did fall 2 days ago however she did not injure herself at that time. Is having calf tenderness to the left medial calf. Does have some swelling in the left lower extremity as well. Denies any fever or chills. Denies any shortness of breath or chest pain currently. Related Data Home Medications Medication Instructions Recorded Confirmed cyanocobalamin (vitamin B-12) 1,000 mcg IM WEEKLY 10/07/19 06/09/23 1,000 mcg/mL injection kit cyclosporine 0.05 % eye drops in a 1 drop ophthalmic (eye) Q12H 10/07/19 06/09/23 dropperette (Restasis) estradiol cypionate 5 mg/mL 2.5 mg IM [id number] 10/07/19 06/09/23 intramuscular oil (Depo-Estradiol) finasteride 5 mg tablet 5 mg PO DAILY 10/07/19 06/09/23 gabapentin 600 mg tablet 600 mg PO BID 10/07/19 06/09/23 levothyroxine 175 mcg tablet 175 mcg PO DAILY 10/07/19 06/09/23 liothyronine 5 mcg tablet 5 mcg PO DAILY 10/07/19 06/09/23 sertraline 50 mg tablet 50 mg PO DAILY 10/07/19 06/09/23 spironolactone 100 mg tablet 200 mg PO DAILY 10/07/19 06/09/23 testosterone cypionate 200 mg/mL 50 mg IM .q2w 10/07/19 06/09/23 intramuscular kit (Testone CIK) amitriptyline 25 mg tablet 25 mg PO ONCE 03/03/20 06/09/23 folic acid 1 mg tablet 2 mg PO DAILY 03/03/20 06/09/23 hydrocodone 10 mg-acetaminophen 1 tablet PO Q6H PRN Pain 11/12/21 06/09/23 325 mg tablet pantoprazole 20 mg tablet,delayed 20 mg PO QAM 03/29/22 06/09/23 release methotrexate sodium 2.5 mg tablet 2.5 mg PO WEEKLY 09/06/22 06/09/23 clotrimazole 10 mg viri mg 06/09/23 Allergies Allergy/AdvReac Type Severity Reaction Status Date / Time sumatriptan [From Imitrex] AdvReac Intermediate Other Verified 06/09/23 17:56 fentanyl AdvReac Unknown ITCHING Verified 06/09/23 17:56 hydromorphone AdvReac Unknown Itching Verified 06/09/23 17:56 morphine AdvReac Unknown Itching Verified 06/09/23 17:56 Review of Systems Review of Systems: Pertinent positives per HPI. Patient denies any fever, chills, rash, headache, visual changes, dizziness, cough, runny nose, sore throat, shortness of breath, chest pain, palpitations, nausea, vomiting, diarrhea, constipation, abdominal pain, or any urinary issues. 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 Hx of bilateral cataract extraction Hx of cardiac cath Hx of tubal ligation Family History Family History Father Patient's father is Family history of thyroid disease Family history of cataracts Family history of hea
[2023-06-09 17:54] VITALS: BP 119/53; PULSE 82; RESP 18; TEMP 36.4; O2SAT 96
[2023-06-09 17:59] VITALS: BP 119/53; PULSE 82; RESP 18; TEMP 36.4; O2SAT 96
== END 2023-06-09 18:33 | disposition left against medical advice (07) ==
PROVIDERS: Emergency Provider Nurse Practitioner Family; PCP Internal Medicine
DX: M79.662 Pain in left lower leg (principal); B37.0 Candidal stomatitis; Z87.891 Personal history of nicotine dependence; K21.9 Gastro-esophageal reflux disease without esophagitis; E78.00 Pure hypercholesterolemia, unspecified; E03.9 Hypothyroidism, unspecified; M19.90 Unspecified osteoarthritis, unspecified site; M06.9 Rheumatoid arthritis, unspecified; Z96.653 Presence of artificial knee joint, bilateral; F41.9 Anxiety disorder, unspecified; F32.A Depression, unspecified; Z96.643 Presence of artificial hip joint, bilateral; Z98.42 Cataract extraction status, left eye; Z98.41 Cataract extraction status, right eye; Z90.10 Acquired absence of unspecified breast and nipple
CPT/HCPCS: 99213; G0463

== ENCOUNTER 2023-06-10 13:00 | Emergency (ER) | payer OTHER, SELFPAY ==
--- NOTE | ~2023-06-10 | US_ITS ---
EXAMINATION: US venous doppler [facility] DATE: 06/10/2023 14:05 INDICATION: LLE pain . TECHNIQUE: Grayscale images without and with compression and Doppler images of the left lower extremi ty veins were obtained. COMPARISON: None FINDINGS: The left common femoral vein, profunda (deep) femoral vein, femoral vein, popliteal vein, peroneal v ein, posterior tibial veins, gastrocnemius vein, and greater saphenous vein are patent. IMPRESSION: Patent left lower extremity veins. No evidence of deep venous thrombosis. Reviewed, dictated and finalized at [facility]
[2023-06-10 13:02] VITALS: BP 130/51; PULSE 69; RESP 16; TEMP 36.2; O2SAT 100
[2023-06-10 13:37] LABS: Basophils Percent Auto 0.6 % (0.2-1.2); Eosinophils Absolute Auto 0.2 K/mm3 (0-0.3); Eosinophils Percent Auto 3.1 % (0-4.4); Hematocrit 33.9 % (37.0-47.0); Hemoglobin 10.6 g/dL (12.0-15.0); Immature Granulocyte Absolute 0.07 K/mm3 (0.00-0.031); Lymphocytes Absolute Auto 1.77 K/mm3 (0.9-3.2); Lymphocytes Percent Auto 26.3 % (18.3-44.2); Mean Corpuscular HGB Conc 31.3 g/dl (32-36); Mean Corpuscular Hemoglobin 31.6 pg (26-34); Mean Corpuscular Volume 101.2 fl (80-100); Mean Platelet Volume 9.1 fl (7.4-10.4); Monocytes Absolute Auto 0.8 K/mm3 (0.1-0.6); Monocytes Percent Auto 11.3 % (2.6-8.5); Neutrophils Absolute Auto 3.9 K/mm3 (1.3-6.7); Neutrophils Percent Auto 57.7 % (45.5-73.1); Platelet Count Result 371 k/mm3 (150-375); Red Blood Count 3.35 M/mm3 (4.2-5.4); Red Cell Distribution Width 14.5 % (11.5-14.5); White Blood Count 6.7 K/mm3 (4.5-10.0)
--- NOTE | 2023-06-10 13:45 | ED.EXTPRO ---
HPI - Extremity Problem General Chief complaint: Extremity Problem,Nontraumatic Stated complaint: calf pain/seen at urgent care yesterday Time Seen by Provider: 06/10/23 13:10 History of Present Illness HPI Narrative: Patient with left calf pain, started a few days ago, the calf feels tight, she has had muscular pain in the past and she is already on magnesium and potassium pills, went to urgent care yesterday who recommended DVT ultrasound, that is why she is here today. Related Data Home Medications Medication Instructions Recorded Confirmed cyanocobalamin (vitamin B-12) 1,000 mcg IM WEEKLY 10/07/19 06/09/23 1,000 mcg/mL injection kit cyclosporine 0.05 % eye drops in a 1 drop ophthalmic (eye) Q12H 10/07/19 06/09/23 dropperette (Restasis) estradiol cypionate 5 mg/mL 2.5 mg IM [id number] 10/07/19 06/09/23 intramuscular oil (Depo-Estradiol) finasteride 5 mg tablet 5 mg PO DAILY 10/07/19 06/09/23 gabapentin 600 mg tablet 600 mg PO BID 10/07/19 06/09/23 levothyroxine 175 mcg tablet 175 mcg PO DAILY 10/07/19 06/09/23 liothyronine 5 mcg tablet 5 mcg PO DAILY 10/07/19 06/09/23 sertraline 50 mg tablet 50 mg PO DAILY 10/07/19 06/09/23 spironolactone 100 mg tablet 200 mg PO DAILY 10/07/19 06/09/23 testosterone cypionate 200 mg/mL 50 mg IM .q2w 10/07/19 06/09/23 intramuscular kit (Testone CIK) amitriptyline 25 mg tablet 25 mg PO ONCE 03/03/20 06/09/23 folic acid 1 mg tablet 2 mg PO DAILY 03/03/20 06/09/23 hydrocodone 10 mg-acetaminophen 1 tablet PO Q6H PRN Pain 11/12/21 06/09/23 325 mg tablet pantoprazole 20 mg tablet,delayed 20 mg PO QAM 03/29/22 06/09/23 release methotrexate sodium 2.5 mg tablet 2.5 mg PO WEEKLY 09/06/22 06/09/23 clotrimazole 10 mg viri mg 06/09/23 Allergies Allergy/AdvReac Type Severity Reaction Status Date / Time sumatriptan [From Imitrex] AdvReac Intermediate Other Verified 06/09/23 17:56 fentanyl AdvReac Unknown ITCHING Verified 06/09/23 17:56 hydromorphone AdvReac Unknown Itching Verified 06/09/23 17:56 morphine AdvReac Unknown Itching Verified 06/09/23 17:56 Review of Systems Review of Systems: CONST: No fever. HEENT: No sore throat C/V: No chest pain RESP: No cough GI: No nausea or vomiting : No dysuria. M/S: Left leg pain SKIN: No rash. 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 Hx of bilateral cataract extraction Hx of cardiac cath Hx of tubal ligation Family History Family History Father Patient's father is Family history of thyroid disease Family history of cataracts Family history of heart disease in male family member before age 55 Family history of hearing loss Sibling Family history of thyroid disease Family history of obesity Family history of mental disorder Depression Family history of arthritis Family history of diabetes mellitus in first degree relative Family history of atrial fibrillation Mother Family history of cataracts Family history of anemia Cerebrovascular accident Family history of hearing loss Other Family history of malignant neopl
[2023-06-10 13:51] LABS: Anion Gap 10 mmol/L (8-16); Blood Urea Nitrogen 25 mg/dL (7-17); Calcium 9.1 mg/dL (8.4-10.2); Carbon Dioxide 26 mmol/L (22-30); Chloride 101 mmol/L (98-107); Estimated CRCL calculation 34 ml/min; Estimated Glomerular Filt Rate 54; Glucose 76 mg/dL (65-110); Potassium 4.4 mmol/L (3.4-5.0); Sodium 137 mmol/L (137-145)
== END 2023-06-10 14:41 | disposition home or self-care (01) ==
PROVIDERS: Emergency Provider Emergency Medicine; PCP Internal Medicine
DX: M79.662 Pain in left lower leg (principal); D64.9 Anemia, unspecified; E78.00 Pure hypercholesterolemia, unspecified; E03.9 Hypothyroidism, unspecified; M06.9 Rheumatoid arthritis, unspecified; M19.90 Unspecified osteoarthritis, unspecified site; K58.9 Irritable bowel syndrome, unspecified; K21.9 Gastro-esophageal reflux disease without esophagitis; F32.A Depression, unspecified; Z96.653 Presence of artificial knee joint, bilateral; Z96.643 Presence of artificial hip joint, bilateral; Z87.19 Personal history of other diseases of the digestive system; Z87.440 Personal history of urinary (tract) infections; Z87.891 Personal history of nicotine dependence; Z90.710 Acquired absence of both cervix and uterus; Z90.10 Acquired absence of unspecified breast and nipple; Z98.42 Cataract extraction status, left eye; Z98.41 Cataract extraction status, right eye
CPT/HCPCS: 36415; 80048; 83735; 85025; 93971; 99284

== ENCOUNTER 2023-09-21 16:18 | Emergency (ER) | payer OTHER, SELFPAY ==
--- NOTE | 2023-09-21 16:22 | ED.URI ---
HPI - URI/Sore Throat General Chief Complaint: Upper Respiratory Infection Stated Complaint: Sinus Time Seen by Provider: 09/21/23 16:19 Source: patient Mode of arrival: ambulatory Limitations: no limitations History of Present Illness HPI Narrative: Marce is a 77-year-old female patient presenting to the clinic today with complaints of nasal congestion, sinus pressure, yellow nasal drainage x3 weeks. She reports no known fever or chills but has felt weak. MD elicited complaint: cough, rhinorrhea, nasal congestion and sinus pain Related Data Home Medications Medication Instructions Recorded Confirmed cyanocobalamin (vitamin B-12) 1,000 mcg IM WEEKLY 10/07/19 06/09/23 1,000 mcg/mL injection kit cyclosporine 0.05 % eye drops in a 1 drop ophthalmic (eye) Q12H 10/07/19 06/09/23 dropperette (Restasis) estradiol cypionate 5 mg/mL 2.5 mg IM [id number] 10/07/19 06/09/23 intramuscular oil (Depo-Estradiol) finasteride 5 mg tablet 5 mg PO DAILY 10/07/19 06/09/23 gabapentin 600 mg tablet 600 mg PO BID 10/07/19 06/09/23 levothyroxine 175 mcg tablet 175 mcg PO DAILY 10/07/19 06/09/23 liothyronine 5 mcg tablet 5 mcg PO DAILY 10/07/19 06/09/23 sertraline 50 mg tablet 50 mg PO DAILY 10/07/19 06/09/23 spironolactone 100 mg tablet 200 mg PO DAILY 10/07/19 06/09/23 testosterone cypionate 200 mg/mL 50 mg IM .q2w 10/07/19 06/09/23 intramuscular kit (Testone CIK) amitriptyline 25 mg tablet 25 mg PO ONCE 03/03/20 09/21/23 folic acid 1 mg tablet 2 mg PO DAILY 03/03/20 06/09/23 hydrocodone 10 mg-acetaminophen 1 tablet PO Q6H PRN Pain 11/12/21 06/09/23 325 mg tablet pantoprazole 20 mg tablet,delayed 20 mg PO QAM 03/29/22 06/09/23 release methotrexate sodium 2.5 mg tablet 2.5 mg PO WEEKLY 09/06/22 06/09/23 clotrimazole 10 mg viri mg 06/09/23 hydroxyzine HCl 50 mg tablet 50 mg PO ONCE PRN 06/13/23 acyclovir 800 mg tablet 800 mg PO DIRECTED 09/21/23 09/21/23 atorvastatin 20 mg tablet 20 mg PO DAILY 09/21/23 09/21/23 Allergies Allergy/AdvReac Type Severity Reaction Status Date / Time sumatriptan [From Imitrex] AdvReac Intermediate Other Verified 09/21/23 16:22 fentanyl AdvReac Unknown ITCHING Verified 09/21/23 16:22 hydromorphone AdvReac Unknown Itching Verified 09/21/23 16:22 morphine AdvReac Unknown Itching Verified 09/21/23 16:22 Review of Systems Review of Systems: Pertinent positives per HPI. Patient denies any fever, chills, rash, headache, visual changes, dizziness, shortness of breath, chest pain, palpitations, nausea, vomiting, diarrhea, constipation, abdominal pain, or any urinary issues. 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 Hx of bilateral cataract extraction Hx of cardiac cath Hx of tubal ligation Family History Family History Father Patient's father is Family history of thyroid disease Family history of cataracts Family history of heart disease in male family member before age 55 Family history of hearing loss Sibling Family history of thyroid disease Family history of obesity Family history of mental disorder Depression Family history of arthritis Family history of diab
[2023-09-21 16:30] VITALS: BP 129/59; PULSE 90; RESP 16; TEMP 37.2; O2SAT 98
== END 2023-09-21 16:45 | disposition home or self-care (01) ==
PROVIDERS: Emergency Provider Nurse Practitioner Family; PCP Internal Medicine
DX: J01.90 Acute sinusitis, unspecified (principal); B96.89 Other specified bacterial agents as the cause of diseases classified elsewhere; E03.9 Hypothyroidism, unspecified; Z79.899 Other long term (current) drug therapy; Z87.891 Personal history of nicotine dependence
CPT/HCPCS: 99213; G0463

== ENCOUNTER 2023-10-03 14:36 | Emergency (ER) | payer OTHER, SELFPAY ==
[2023-10-03 14:51] VITALS: BP 129/58; PULSE 91; RESP 18; TEMP 36.5; O2SAT 98
--- NOTE | 2023-10-03 15:37 | ED.URI ---
HPI - URI/Sore Throat General Chief Complaint: Upper Respiratory Infection Stated Complaint: tired,no improvement from last visit Time Seen by Provider: 10/03/23 15:37 Source: patient, RN notes reviewed and old records reviewed Mode of arrival: ambulatory Limitations: no limitations History of Present Illness HPI Narrative: 77-[facility] headache, low-grade temperature dizziness for week. Patient endorses that she was seen by in [facility] recently and finished prescription for doxycycline and steroids yesterday. Patient endorses that her PCP recently left and she is trying to get established with the provider that they were place. Patient denies gait changes, falls, visual changes, no GI complaints. Patient has not attempted to treat with [id number] medication. Patient able to tolerate fluids by mouth. Related Data Home Medications Medication Instructions Recorded Confirmed cyanocobalamin (vitamin B-12) 1,000 mcg IM WEEKLY 10/07/19 10/03/23 1,000 mcg/mL injection kit cyclosporine 0.05 % eye drops in a 1 drop ophthalmic (eye) Q12H 10/07/19 10/03/23 dropperette (Restasis) estradiol cypionate 5 mg/mL 2.5 mg IM [id number] 10/07/19 10/03/23 intramuscular oil (Depo-Estradiol) finasteride 5 mg tablet 5 mg PO DAILY 10/07/19 10/03/23 gabapentin 600 mg tablet 600 mg PO BID 10/07/19 10/03/23 levothyroxine 175 mcg tablet 175 mcg PO DAILY 10/07/19 10/03/23 liothyronine 5 mcg tablet 5 mcg PO DAILY 10/07/19 10/03/23 sertraline 50 mg tablet 50 mg PO DAILY 10/07/19 10/03/23 spironolactone 100 mg tablet 200 mg PO DAILY 10/07/19 10/03/23 testosterone cypionate 200 mg/mL 50 mg IM .q2w 10/07/19 10/03/23 intramuscular kit (Testone CIK) amitriptyline 25 mg tablet 25 mg PO ONCE 03/03/20 10/03/23 folic acid 1 mg tablet 2 mg PO DAILY 03/03/20 10/03/23 hydrocodone 10 mg-acetaminophen 1 tablet PO Q6H PRN Pain 11/12/21 10/03/23 325 mg tablet pantoprazole 20 mg tablet,delayed 20 mg PO QAM 03/29/22 10/03/23 release methotrexate sodium 2.5 mg tablet 2.5 mg PO WEEKLY 09/06/22 10/03/23 clotrimazole 10 mg viri 10 mg PO DAILY 06/09/23 10/03/23 hydroxyzine HCl 50 mg tablet 50 mg PO ONCE 06/13/23 10/03/23 acyclovir 800 mg tablet 800 mg PO DIRECTED 09/21/23 10/03/23 atorvastatin 20 mg tablet 20 mg PO DAILY 09/21/23 10/03/23 Allergies Allergy/AdvReac Type Severity Reaction Status Date / Time sumatriptan [From Imitrex] AdvReac Intermediate Other Verified 10/03/23 14:39 fentanyl AdvReac Unknown ITCHING Verified 10/03/23 14:39 hydromorphone AdvReac Unknown Itching Verified 10/03/23 14:39 morphine AdvReac Unknown Itching Verified 10/03/23 14:39 Review of Systems Review of Systems: All systems reviewed & are unremarkable except as noted in HPI and below Constitutional: Constitutional: Reports as per HPI, Denies body ache(s), Denies chills, Reports fever(s) ( Low-grade per patient) and Reports headache(s) Eyes: Eyes: Reports no additional eye complaints ENT: Reports system reviewed and no additional complaints, except as documented Cardiovascular: Cardiovascular: Reports no additional cardiovascular complaints, Denies chest pain and Denies dyspnea Respiratory: Respiratory: Reports no additional respiratory complaints, Denies cough and Denies dyspnea Musculoskeletal: Musculoskeletal: Reports no additional musculoskeletal complaints Neurologic: Reports system reviewed and no additional complaints, except as documented, Denies abnormal gait, Denies confusion, Reports dizziness, Denies frequent falls and Denies Sensory deficit (Neuro) Psychiatric: Psychiatric: Reports no additional psychiatric complaints PMFSH Past Medical History Medical History Anemia Back pain with history of spinal surgery Cataracts, bilateral Depression GERD (gastroesophageal reflux disease) History of GI bleed History of rectal polyps History of revision of total re
== END 2023-10-03 16:05 | disposition home or self-care (01) ==
PROVIDERS: Emergency Provider Nurse Practitioner Family; PCP Internal Medicine
DX: H61.23 Impacted cerumen, bilateral (principal); Z87.891 Personal history of nicotine dependence; K21.9 Gastro-esophageal reflux disease without esophagitis; E78.00 Pure hypercholesterolemia, unspecified; E03.9 Hypothyroidism, unspecified; M19.90 Unspecified osteoarthritis, unspecified site; M06.9 Rheumatoid arthritis, unspecified; F41.9 Anxiety disorder, unspecified; F32.A Depression, unspecified; Z96.653 Presence of artificial knee joint, bilateral; Z96.643 Presence of artificial hip joint, bilateral; Z98.42 Cataract extraction status, left eye; Z98.41 Cataract extraction status, right eye
CPT/HCPCS: 69210; 99212; G0463